=== PATIENT | male | born 1960 | race Two or more races ===

== ENCOUNTER 2023-11-01 10:42 | Inpatient (IN) | payer OTHER ==
[2023-11-01 11:56] LABS: Basophils # (A) 0.1 k/uL (0-0.2); Basophils % (A) 1 %; Eosinophils # (A) 0.1 k/uL (0-0.7); Eosinophils % (A) 1 %; HCT 54.7 % (39.0-53.0); HGB 18.8 gm/dL (13.0-17.5); Lymphocytes # (A) 1.9 k/uL (1.0-4.8); Lymphocytes % (A) 15 %; MCH 31.7 pg (25.0-35.0); MCHC 34.3 g/dL (31.0-37.0); MCV 92.4 fL (80.0-100.0); Mean Platelet Volume 8.2; Monocytes # (A) 0.9 k/uL (0-1.0); Monocytes % (A) 7 %; Neutrophils # (A) 10.1 k/uL (1.3-7.7); Neutrophils % (A) 76 %; Platelet Count 136 k/uL (150-450); RBC 5.92 m/uL (4.30-5.90); RDW 12.7 % (11.5-15.5); WBC 13.3 k/uL (3.8-10.6)
--- NOTE | 2023-11-01 12:07 | ED ---
Abdominal Pain HPI - General Chief Complaint: Abdominal Pain Stated Complaint: ABD pain, SOB Time Seen by Provider: 11/01/23 11:30 Source: patient, RN notes reviewed Mode of arrival: ambulatory Limitations: no limitations - History of Present Illness Initial Comments: 62-year-old male presenting with right upper quadrant pain x 2 days. States he woke up in the middle of the night 2 nights ago and vomited 2 times. He has had dull, constant right upper quadrant pain since then. He has not vomited since 2 nights ago. States he ate Kiswahili several hours before initial symptoms began. He also states he has felt short of breath but denies chest pain or palpitations. States he has a history of a " collapsed lung" several years ago. Denies diarrhea, fever, URI symptoms, urinary symptoms. Denies previous abdominal surgeries. He is tolerating orals but states his appetite is minimal. - Related Data Home Medications Medication Instructions Recorded Confirmed No Known Home Medications 11/01/23 11/01/23 Allergies Allergy/AdvReac Type Severity Reaction Status Date / Time No Known Allergies Allergy Verified 11/01/23 14:37 Review of Systems ROS Statement: Those systems with pertinent positive or pertinent negative responses have been documented in the HPI. ROS Other: All systems not noted in ROS Statement are negative. Past Medical History Past Medical History: Hypertension, Myocardial Infarction ([place]) History of Any Multi-Drug Resistant Organisms: None Reported Past Surgical History: Heart Catheterization Additional Past Surgical History / Comment(s): "NEVER HAD ANY SX" Past Anesthesia/Blood Transfusion Reactions: Motion Sickness Past Psychological History: No Psychological Hx Reported Smoking Status: Current every day smoker Past Alcohol Use History: None Reported, Rare Past Drug Use History: None Reported - Past Family History Father Additional Family Medical History / Comment(s): HEART PROBLEMS Mother Family Medical History: Asthma, Cancer, Diabetes Mellitus, Hypertension, Myocardial Infarction ([place]) Additional Family Medical History / Comment(s): SKIN CANCER. General Exam Limitations: no limitations General appearance: alert, in no apparent distress ENT exam: Present: normal exam, mucous membranes moist Respiratory exam: Present: normal lung sounds bilaterally. Absent: respiratory distress, wheezes, rales, rhonchi, stridor Cardiovascular Exam: Present: regular rate, normal rhythm, normal heart sounds. Absent: systolic murmur, diastolic murmur, rubs, gallop, clicks GI/Abdominal exam: Present: soft, tenderness (Mild tenderness in right upper quadrant.), normal bowel sounds. Absent: distended, guarding, rebound, rigid Course Vital Signs 11/01/23 11/01/23 10:48 13:59 Temperature 98.6 F Pulse Rate 105 H 82 Respiratory 20 18 Rate Blood Pressure 179/101 220/107 O2 Sat by Pulse 98 98 Oximetry Medical Decision Making - Medical Decision Making Was pt. sent in by a medical professional or institution (, PA, MID LEVEL PRACTITIONER, urgent care, hospital, or intermediate...) When possible be specific @ -Urgent care Did you speak to anyone other than the patient for history (EMS, parent, family, police, friend...)? What history was obtained from this source @ -No Did you review nursing and triage notes (agree or disagree)? Why? @ -I reviewed and agree with nursing and triage notes Were old charts reviewed (outside hosp., previous admission, EMS record, old EKG, old radiological studies, urgent care reports/EKG's, intermediate records)? Report findings @ -No old charts were reviewed Differential Diagnosis (chest pain, altered mental status, abdominal pain women, abdominal pain men, vaginal bleeding, weakness, fever, dyspnea, syncope, h eadache, dizziness, GI bleed, back pain, seizure, CVA, palpatations, mental health, musculoskeletal)? @ -Differential Abdominal Pain Men: Appendicitis, cholecystitis, diverticulosis, ischemic bowel, pancreatitis, hepatitis, UTI, gastroenteritis, AAA, incarcerated hernia, bowel obstruction, constipation, inflammatory bowel, hepatitis, peptic ulcer disease, splenic infarction, perforated viscus, testicular torsion, this is not meant to be an all-inclusive list EKG interpreted by me (3pts min.). @ -Normal sinus rhythm with no ST changes X-rays interpreted by me (1pt min.). @ -Chest x-ray reveals no acute process CT interpreted by me (1pt min.). @ -None done U/S interpreted by me (1pt. min.). @ -Ultrasound of gallbladder reveals acute cholecystitis What testing was considered but not performed or refused? (CT, X-rays, U/S, labs)? Why? @ -None What meds were considered but not given or refused? Why? @ -None Did you discuss the management of the patient with other professionals (professionals i.e. , PA, MID LEVEL PRACTITIONER, lab, RT, psych nurse, social group worker, tire center manager, teacher, weapons officer naval activity, correctional counselor/case manager)? Give summary @ -No Was smoking cessation discussed for >3mins.? @ -No Was critical care preformed (if so, how long)? @ -No Were there social determinants of health that impacted care today? How? (Homelessness, low income, unemployed, alcoholism, drug addiction, transportation, low edu. Level, literacy, decrease access to med. care, prison, rehab)? @ -No Was there de-escalation of care discussed even if they declined (Discuss DNR or withdrawal of care, Hospice)? DNR status @ -No What co-morbidities impacted this encounter? (DM, HTN, Smoking, COPD, CAD, Cancer, CVA, ARF, Chemo, Hep., AIDS, mental health diagnosis, sleep apnea, morbid obesity)? @ -No Was patient admitted / discharged? Hospital course, mention meds given and route, prescriptions, significant lab abnormalities, going to OR and other pertinent info. @ -Patient was admitted. Patient was seen and examined for right upper quadrant pain x 2 days. Patient is afebrile on exam, blood pressure is elevated at 210/107. examination remarkable for right upper quadrant tenderness. EKG and chest x-ray obtained due to shortness of breath, EKG reveals normal sinus rhythm and chest x-ray was negative for acute process. Lab work remarkable for white blood cell count of 13.3. Urine unremarkable. Patient was given fluids and IV morphine for pain. Patient was given hydralazine for elevated blood pressure. Spoke with Dr. Copeland regarding admission, instructed to admit patient to medicine team. Care discussed with medicine team. Cardiology and surgery team consulted. Undiagnosed new problem with uncertain prognosis? @ -No Drug Therapy requiring intensive monitoring for toxicity (Heparin, Nitro, Insulin, Cardizem)? @ -No Were any procedures done? @ -No Diagnosis/symptom? @ -Acute cholecystitis Acute, or Chronic, or Acute on Chronic? @ -Acute Uncomplicated (without systemic symptoms) or Complicated (systemic symptoms)? @ -Uncomplicated Side effects of treatment? @ -No Exacerbation, Progression, or Severe Exacerbation? @ -No Poses a threat to life or bodily function? How? (Chest pain, USA, VT, pneumonia, PE, COPD, DKA, ARF, appy, cholecystitis, CVA, Diverticulitis, Homicidal, Suicidal, threat to staff... and all critical care pts) @ -No - Lab Data Result diagrams: 11/01/23 11:43 11/01/23 11:43 Lab Results 11/01/23 11/01/23 11/01/23 Range/Units 11:43 11:43 11:43 WBC 13.3 H (3.8-10.6) k/uL RBC 5.92 H (4.30-5.90) m/uL Hgb 18.8 H (13.0-17.5) gm/dL Hct 54.7 H (39.0-53.0) % MCV 92.4 (80.0-100.0) fL MCH 31.7 (25.0-35.0) pg MCHC 34.3 (31.0-37.0) g/dL RDW 12.7 (11.5-15.5) % Plt Count 136 L (150-450) k/uL MPV 8.2 Neutrophils % 76 % Lymphocytes % 15 % Monocytes % 7 % Eosinophils % 1 % Basophils % 1 % Neutrophils # 10.1 H (1.3-7.7) k/uL Lymphocytes # 1.9 (1.0-4.8) k/uL Monocytes # 0.9 (0-1.0) k/uL Eosinophils # 0.1 (0-0.7) k/uL Basophils # 0.1 (0-0.2) k/uL Sodium 138 (137-145) mmol/L Potassium 4.3 (3.5-5.1) mmol/L Chloride 106 (98-107) mmol/L Carbon Dioxide 24 (22-30) mmol/L Anion Gap 8 mmol/L BUN 20 (9-20) mg/dL Creatinine 0.81 (0.66-1.25) mg/dL Est GFR (CKD-EPI)AfAm >90 (>60 ml/min/1.73 sqM) Est GFR (CKD-EPI)NonAf >90 (>60 ml/min/1.73 sqM) Glucose 127 H (74-99) mg/dL Plasma Lactic Acid Piero (0.7-2.0) mmol/L Calcium 9.7 (8.4-10.2) mg/dL Total Bilirubin 1.3 (0.2-1.3) mg/dL AST 21 (17-59) U/L ALT 25 (4-49) U/L Alkaline Phosphatase 98 (38-126) U/L Troponin I (0.000-0.034) ng/mL Total Protein 7.8 (6.3-8.2) g/dL Albumin 4.4 (3.5-5.0) g/dL Lipase 34 (23-300) U/L Urine Color Yellow Urine Appearance Clear (Clear) Urine pH 5.5 (5.0-8.0) Ur Specific [place] 1.027 (1.001-1.035) Urine Protein 1+ H (Negative) Urine Glucose (UA) Negative (Negative) Urine Ketones Negative (Negative) Urine Blood Negative (Negative) Urine Nitrite Negative (Negative) Urine Bilirubin Negative (Negative) Urine Urobilinogen <2.0 (<2.0) mg/dL Ur Leukocyte Esterase Negative (Negative) Urine WBC 1 (0-5) /hpf Ur Squamous Epith Cells <1 (0-4) /hpf Urine Mucus Moderate H (None) /hpf 11/01/23 11/01/23 Range/Units 11:43 11:43 WBC (3.8-10.6) k/uL RBC (4.30-5.90) m/uL Hgb (13.0-17.5) gm/dL Hct (39.0-53.0) % MCV (80.0-100.0) fL MCH (25.0-35.0) pg MCHC (31.0-37.0) g/dL RDW (11.5-15.5) % Plt Count (150-450) k/uL MPV Neutrophils % % Lymphocytes % % Monocytes % % Eosinophils % % Basophils % % Neutrophils # (1.3-7.7) k/uL Lymphocytes # (1.0-4.8) k/uL Monocytes # (0-1.0) k/uL Eosinophils # (0-0.7) k/uL Basophils # (0-0.2) k/uL Sodium (137-145) mmol/L Potassium (3.5-5.1) mmol/L Chloride (98-107) mmol/L Carbon Dioxide (22-30) mmol/L Anion Gap mmol/L BUN (9-20) mg/dL Creatinine (0.66-1.25) mg/dL Est GFR (CKD-EPI)AfAm (>60 ml/min/1.73 sqM) Est GFR (CKD-EPI)NonAf (>60 ml/min/1.73 sqM) Glucose (74-99) mg/dL Plasma Lactic Acid Piero 1.1 (0.7-2.0) mmol/L Calcium (8.4-10.2) mg/dL Total Bilirubin (0.2-1.3) mg/dL AST (17-59) U/L ALT (4-49) U/L Alkaline Phosphatase (38-126) U/L Troponin I <0.012 (0.000-0.034) ng/mL Total Protein (6.3-8.2) g/dL Albumin (3.5-5.0) g/dL Lipase (23-300) U/L Urine Color Urine Appearance (Clear) Urine pH (5.0-8.0) Ur Specific [place] (1.001-1.035) Urine Protein (Negative) Urine Glucose (UA) (Negative) Urine Ketones (Negative) Urine Blood (Negative) Urine Nitrite (Negative) Urine Bilirubin (Negative) Urine Urobilinogen (<2.0) mg/dL Ur Leukocyte Esterase (Negative) Urine WBC (0-5) /hpf Ur Squamous Epith Cells (0-4) /hpf Urine Mucus (None) /hpf - EKG Data -: EKG Interpreted by [facility] EKG shows normal: sinus rhythm EKG Comments: Normal sinus rhythm with no ST changes. Vent rate 93, NM interval 160, QRS duration 102, QT/QTc 348/398. Disposition Clinical Impression: Acute cholecystitis Disposition: ADMITTED IP TO THIS HOSP Condition: Stable Referrals: Scott Faria MD [Primary Care Provider] - 1-2 days Time of Disposition: 14:47
--- NOTE | 2023-11-01 12:12 | XR ---
EXAMINATION TYPE: XR chest 2V DATE OF EXAM: 11/01/2023 12:06 PM CLINICAL INDICATION:Male, 62 years old with history of abdominal pain; [facility] COMPARISON: None TECHNIQUE: XR chest 2V Frontal and lateral views of the chest. FINDINGS: Lungs/Pleura: There is no evidence of pleural effusion, focal consolidation, or pneumothorax. Pulmonary vascularity: Unremarkable. Heart/mediastinum: Cardiomediastinal silhouette is unremarkable. Musculoskeletal: No acute osseous pathology. Other findings: None IMPRESSION: No acute cardiopulmonary disease/process.
[2023-11-01 12:16] LABS: ALT 25 U/L (4-49); AST 21 U/L (17-59); African American GFR (CKD) >90 (>60 ml/min/1.73 sqM); Albumin 4.4 g/dL (3.5-5.0); Alkaline Phosphatase 98 U/L (38-126); Anion Gap 8 mmol/L; Blood Urea Nitrogen 20 mg/dL (9-20); Calcium 9.7 mg/dL (8.4-10.2); Carbon Dioxide 24 mmol/L (22-30); Chloride 106 mmol/L (98-107); Glucose 127 mg/dL (74-99); Lipase 34 U/L (23-300); Non-African American GFR(CKD) >90 (>60 ml/min/1.73 sqM); Potassium 4.3 mmol/L (3.5-5.1); Sodium 138 mmol/L (137-145); Total Bilirubin 1.3 mg/dL (0.2-1.3); Total Protein 7.8 g/dL (6.3-8.2)
[2023-11-01 12:24] LABS: Appearance,Urine Clear (Clear); Bilirubin,Urine Negative (Negative); Blood,Urine Negative (Negative); Color,Urine Yellow; Glucose,Urine (UA) Negative (Negative); Ketones,Urine Negative (Negative); Leukocyte Esterase,Urine Negative (Negative); Mucus,Urine Moderate /hpf; Nitrite,Urine Negative (Negative); PH, Urine 5.5 (5.0-8.0); Protein,Urine 1+ (Negative); Specific Gravity,Urine 1.027 (1.001-1.035); Squamous Epithelial Cell,Urine <1 /hpf (0-4); Urobilinogen,Urine <2.0 mg/dL (<2.0); WBC,Urine 1 /hpf (0-5)
[2023-11-01] MEDS: MORPHINE SULFATE 4 MG/ML SYRINGE IVP STA (13:05)
[2023-11-01] MEDS: SODIUM CHLORIDE 0.9% 1,000 ML IV STA (13:06)
--- NOTE | 2023-11-01 13:12 | US ---
EXAMINATION TYPE: US gallbladder DATE OF EXAM: 11/01/2023 COMPARISON: NONE CLINICAL INDICATION: Male, 62 years old with history of RUQ pain; Pt states ABD pain x 2 days TECHNIQUE: Multiple sonographic images of the right upper quadrant are obtained. FINDINGS: EXAM MEASUREMENTS: Liver Length: 18.0 cm Gallbladder Wall: 0.8 cm CBD: 0.7 cm Right Kidney: 10.2 x 5.0 x 4.8 cm ARMORER TECHNICIAN NOTES: Pancreas: Obscured by bowel gas Liver: Left lobe gassed out, right lobe visualized intercostally only- pt unable to take breath in a nd hold it Gallbladder: Difficult to visualize- Distended, Probable gallstones, thickened wall, and pericholecy stic fluid Evidence for sonographic Marquis's sign: Yes CBD: wnl Right Kidney: No evidence of hydro, lower pole gassed out IMPRESSION: Poor visualization due to bowel gas there is evidence for cholelithiasis with pericholecystic fluid a nd possible gallbladder wall thickening. In the presence of a positive sonographic Marquis's sign, fin dings are concerning for acute cholecystitis. Surgical consultation recommended. Consider confirmatio n with HIDA scan.
[2023-11-01] MEDS ORDERED: NALOXONE 0.4 MG/ML 1 ML VIAL IV PRN (14:00)
[2023-11-01] MEDS ORDERED: ONDANSETRON 4 MG/2 ML VIAL IVP PRN (14:00)
--- NOTE | 2023-11-01 14:37 | P.GSHP ---
History of Present Illness H&P Date: 11/01/23 CHIEF COMPLAINT: Abdominal pain HISTORY OF PRESENT ILLNESS: This is a 62-year-old male who presented to the hospital with complaints of right upper quadrant abdominal pain x 2 days. Patient reports the abdominal pain woke him up Wednesday morning. The prior evening he had eaten Croatian for dinner. He did have nausea and vomiting x 2 on Wednesday. Patient reports that he has felt feverish and warm. Patient reports the pain did become very severe rated at 7 out of 10 he was having shortness of breath with the pain. He is currently on room air. He does report that the pain is located right upper quadrant and radiates around to the back. Patient denies any prior abdominal surgeries. His ultrasound did show evidence of gallstones, pericholecystic fluid gallbladder wall thickening and a positive Marquis sign and to consider for acute cholecystitis. Patient's blood pressure is very elevated he is mildly tachycardic and evidence of leukocytosis. Patient has been noncompliant with his cardiac meds which did include Plavix and Imdur. He reports he stopped taking them on his own several years ago. Patient has history of coronary artery disease. Patient is still smoking about a pack a day. Patient diet denies any chest pain or shortness of breath currently. He does complain of back pain. PAST MEDICAL HISTORY: See list. PAST SURGICAL HISTORY: See list. MEDICATIONS: See list. ALLERGIES: See list. SOCIAL HISTORY: No illicit drug use. REVIEW OF SYSTEMS: CONSTITUTIONAL: Denies fever or chills. HEENT: Denies blurred vision, vision changes, or eye pain. Denies hemoptysis ENDOCRINE: Denies heat or cold intolerance. CARDIOVASCULAR: Denies chest pain or pressure. RESPIRATORY: No shortness of breath. GASTROINTESTINAL: Please refer to HPI otherwise unremarkable NEURO: Denies history of seizures. PSYCH: No depression or suicidal ideation HEMATOLOGIC: Denies bleeding disorders. LYMPHATIC: The patient denies any lumps and bumps around the neck. GENITOURINARY: Denies any blood in urine or increased urinary frequency. MUSCULOSKELETAL: Denies myalgias. Denies joint swelling. Denies decreased range of motion beyond patients baseline. SKIN: Denies pruitis. Denies rash. PHYSICAL EXAM: VITAL SIGNS: Reviewed GENERAL: Well-developed in no acute distress. HEENT: No sclera icterus. Extraocular movements grossly intact. Moist buccal mucosa. Head is atraumatic, normocephalic. Hears conversational speech. No nasal drainage. NECK: Supple without lymphadenopathy. CHEST: Non-labored respirations and equal bilateral excursions. CARDIOVASCULAR: Palpable 2+ radial pulses. ABDOMEN: Soft. Nondistended. Right upper quadrant tenderness MUSCULOSKELETAL: No clubbing or cyanosis. NEUROLOGIC: No focal or lateralizing signs. Cranial nerves II through XII grossly intact. PSYCH: Appropriate affect. Alert and oriented to person, place and time. SKIN: Well perfused. Good skin turgor. LABORATORY DATA: WBC 13.3 Hgb 18.8 platelets 136 Sodium 138 potassium 4.3 creatinine 0.81 Lactic acid 1.1 Troponin negative LFTs normal lipase 34 IMAGING: Gallbladder ultrasound poor visualization due to bowel gas there is evidence for cholelithiasis with pericholecystic fluid and possible gallbladder wall thickening. Positive Marquis sign. Findings are concerning for acute cholecystitis. ASSESSMENT: 1. Acute cholecystitis 2. Severe hypertension 3. Medical noncompliance 4. History of coronary artery disease 5. Nicotine dependence PLAN: -Further recommendations forthcoming per surgeon regarding surgical intervention. Prior to surgical intervention will need cardiac clearance. -Continue antibiotics -Continue pain management -Continue IV fluids -Continue antiemetics -Continue BP management -EKG ordered -Consult cardiology for cardiac risk assessment. BP management -2D echo ordered Physician College Service Officer note has been reviewed by physician. Signing provider agrees with the documented findings, assessment, and plan of care. Past Medical History Past Medical History: Hypertension, Myocardial Infarction ([place]) History of Any Multi-Drug Resistant Organisms: None Reported Past Surgical History: Heart Catheterization Additional Past Surgical History / Comment(s): "NEVER HAD ANY SX" Past Anesthesia/Blood Transfusion Reactions: Motion Sickness Past Psychological History: No Psychological Hx Reported Smoking Status: Current every day smoker Past Alcohol Use History: None Reported, Rare Past Drug Use History: None Reported - Past Family History Father Additional Family Medical History / Comment(s): HEART PROBLEMS Mother Family Medical History: Asthma, Cancer, Diabetes Mellitus, Hypertension, Myocardial Infarction ([place]) Additional Family Medical History / Comment(s): SKIN CANCER. Medications and Allergies Home Medications Medication Instructions Recorded Confirmed Type lisinopriL [Zestril] 10 mg PO DAILY 12/09/15 12/09/15 History Aspirin EC [Ecotrin] 325 mg PO DAILY #30 tablet. 12/12/15 Rx Atorvastatin [Lipitor] 80 mg PO DAILY #30 tab 12/12/15 Rx Clopidogrel [Plavix] 75 mg PO DAILY #30 tab 12/12/15 Rx Isosorbide Mononitrate ER [Imdur] 30 mg PO DAILY #30 tab.er.24h 12/12/15 Rx Metoprolol Tartrate [Lopressor] 25 mg PO BID #60 tab 12/12/15 Rx Nicotine 21Mg/24Hr Patch [Habitrol] 1 patch TRANSDERM DAILY #30 patch 12/12/15 Rx Nitroglycerin Sl Tabs [Nitrostat] 0.4 mg SUBLINGUAL Q5M PRN #25 tab 12/12/15 Rx Allergies Allergy/AdvReac Type Severity Reaction Status Date / Time No Known Allergies Allergy Verified 11/01/23 10:52 Surgical - Exam Vital Signs Temp Pulse Resp BP Pulse Ox 98.6 F 105 H 20 179/101 98 11/01/23 10:48 11/01/23 10:48 11/01/23 10:48 11/01/23 10:48 11/01/23 10:48 Results - Labs 11/01/23 11:43 11/01/23 11:43 Abnormal Lab Results - Last 24 Hours (Table) 11/01/23 11/01/23 11/01/23 Range/Units 11:43 11:43 11:43 WBC 13.3 H (3.8-10.6) k/uL RBC 5.92 H (4.30-5.90) m/uL Hgb 18.8 H (13.0-17.5) gm/dL Hct 54.7 H (39.0-53.0) % Plt Count 136 L (150-450) k/uL Neutrophils # 10.1 H (1.3-7.7) k/uL Glucose 127 H (74-99) mg/dL Urine Protein 1+ H (Negative) Urine Mucus Moderate H (None) /hpf Diabetes panel 11/01/23 Range/Units 11:43 Sodium 138 (137-145) mmol/L Potassium 4.3 (3.5-5.1) mmol/L Chloride 106 (98-107) mmol/L Carbon Dioxide 24 (22-30) mmol/L BUN 20 (9-20) mg/dL Creatinine 0.81 (0.66-1.25) mg/dL Glucose 127 H (74-99) mg/dL Calcium 9.7 (8.4-10.2) mg/dL AST 21 (17-59) U/L ALT 25 (4-49) U/L Alkaline Phosphatase 98 (38-126) U/L Total Protein 7.8 (6.3-8.2) g/dL Albumin 4.4 (3.5-5.0) g/dL Calcium panel 11/01/23 Range/Units 11:43 Calcium 9.7 (8.4-10.2) mg/dL Albumin 4.4 (3.5-5.0) g/dL Pituitary panel 11/01/23 Range/Units 11:43 Sodium 138 (137-145) mmol/L Potassium 4.3 (3.5-5.1) mmol/L Chloride 106 (98-107) mmol/L Carbon Dioxide 24 (22-30) mmol/L BUN 20 (9-20) mg/dL Creatinine 0.81 (0.66-1.25) mg/dL Glucose 127 H (74-99) mg/dL Calcium 9.7 (8.4-10.2) mg/dL Adrenal panel 11/01/23 Range/Units 11:43 Sodium 138 (137-145) mmol/L Potassium 4.3 (3.5-5.1) mmol/L Chloride 106 (98-107) mmol/L Carbon Dioxide 24 (22-30) mmol/L BUN 20 (9-20) mg/dL Creatinine 0.81 (0.66-1.25) mg/dL Glucose 127 H (74-99) mg/dL Calcium 9.7 (8.4-10.2) mg/dL Total Bilirubin 1.3 (0.2-1.3) mg/dL AST 21 (17-59) U/L ALT 25 (4-49) U/L Alkaline Phosphatase 98 (38-126) U/L Total Protein 7.8 (6.3-8.2) g/dL Albumin 4.4 (3.5-5.0) g/dL
--- NOTE | 2023-11-01 15:17 | P.HPIM ---
History of Present Illness H&P Date: 11/01/23 History of Presenting Illness: Patient is a very pleasant 62-year-old male with a past medical history of CAD with previous RI, hypertension, hyperlipidemia, spontaneous pneumothorax, and nicotine dependence smoking 1 pack of cigarettes daily for over 40 years. Patient reports previously on medications for his blood pressure, possibly amlodipine but stopped taking years ago. He presented to the emergency department with a chief complaint of right upper quadrant pain. Patient reports pain began Wednesday night after eating Ethiopian food for dinner. Patient reports when pain began it was accompanied by nausea and vomiting. He reports initial pain lasted for hours but seem to subside and somewhat improved on Wednesday, but states this pain soon returned with a vengeance so he came to the emergency department for evaluation. He reports pain remains to right upper quadrant and seems to radiate straight through into his back. He denies anything making it better or worse. Patient reports in addition to right upper quadrant pain, nausea, and vomiting he has also experiencing subjective fevers at home. He denies experiencing any dizziness/lightheadedness, diaphoresis, dysphagia, chest pain, palpitations, shortness of breath, cough or congestion, hematemesis, or experiencing any difficulties with or changes in his urinary or bowel function. Patient denies having any melena or hematochezia and denies any diarrhea or constipation. He underwent evaluation in the emergency department. Vital signs upon arrival show blood pressure 179/101, heart rate 105, respiratory rate 20, temp 98.6 F, and SpO2 of 98% on room air. Blood pressure increasing to 220/107 in the emergency department and patient was given a dose of IV hydralazine resulting in improvement of pressure decreasing it down to 172/82. EKG completed showing sinus mechanism at 93 bpm with T wave inversion in inferior leads III and aVF. Chest x-ray completed negative for acute cardiopulmonary process. Gallbladder ultrasound completed with reports of positive Marquis's sig n and evidence of cholelithiasis with pericholecystic fluid and possible gallbladder wall thickening concerning for acute cholecystitis. Labs completed and reviewed. CBC showing leukocytosis with WBC count of 13.3, polycythemia with hemoglobin of 18.8 and thrombocytopenia with platelet count of 136. BMP unremarkable. Lactic acid normal findings at 1.1. Liver profile showing normal findings. Troponin negative at less than 0.012. Lipase normal findings at 34. Urinalysis negative for blood or infection. Per ED provider, general surgery was notified and requested patient be admitted under hospitalist team with general surgery and cardiology on consult. Patient accepted for admission under our services at this time. Review of systems: Pertinent positives and negatives as discussed in HPI, a complete review of systems was performed and all other systems are negative. Physical exam: Vital signs reviewed and stable. General: Nontoxic, no distress and appears stated age. Derm: Skin warm and dry, normal coloration for ethnicity. Head: Atraumatic, normocephalic and symmetric. Eyes: EOMs intact, no lid lag, and anicteric sclera Mouth: no lip lesions, mucus membranes moist Cardiovascular: regular rate and rhythm with normal S1S2, no murmur, positive posterior tibial pulses bilaterally, and cap refill < 2 seconds. Lungs: Respirations even, regular, and unlabored on room air. Lungs CTA bilaterally, no rhonchi, no rales, no wheezing, and no accessory muscle usage. Abdominal: Soft with tenderness to right upper quadrant upon palpation Ext: ROM intact. No gross muscle atrophy, no edema, no contractures Neuro: Speech clear, face symmetrical and CN II-XII grossly intact with no noted focal neuro deficits Psych: Alert and oriented to person, place, time, and situation. Appropriate and pleasant affect. Assessment and Plan of Care: Intractable abdominal pain Acute cholecystitis Leukocytosis Polycythemia Thrombocytopenia -Continue gentle IV fluid hydration with 0.9% normal saline at 75 cc/h. -Symptomatic care and pain management with Zofran 4 mg IVP every 8 hours as needed for nausea or vomiting and Dilaudid 1 mg every 3 hours as needed for pain. -General surgery consulted, appreciate recommendations. -Continue with IV antibiotics with Zosyn 3.375 g every 8 hours. -Continued close monitoring with repeat CBC and CMP. Hypertensive urgency History of CAD with previous RI -Hypertensive urgency likely multifactorial secondary to untreated underlying hypertension and pain secondary to acute cholecystitis. -Will restart patient on amlodipine 5 mg daily. -Order placed for hydralazine 10 mg IVP every 4 hours as needed for systolic pressure greater than 180 and/or diastolic greater then 120, with nursing communication written to ensure patient's pain is adequately treated. -Echocardiogram to be completed. -Cardiology consulted, appreciate recommendations. Nicotine dependence -Recommend smoking cessation. Order placed for nicotine patch 21 mg daily. Surgical clearance -METS score is > 4 as patient reports independently performing all ADLs and able to walk 1-2 blocks and/or up 1 flight of stairs without chest pain or shortness of breath. -NSQIP surgical risk calculator showing patient at an above average risk of 2.1% with average of 1.8% for serious complications, above average risk of cardiac complications at 0.1% with average being 0.0% and an above average risk of at 0.1% with average risk being 0.0%. -Patient is at an above average risk to undergo laparoscopic cholecystectomy, however METS score is greater than 4 and therefore further workup is unlikely to change preoperative management and from medical perspective patient may proceed to surgery without further need of testing pending cardiology clearance. Data and imaging reviewed: As stated above in HPI The patient is admitted with an anticipated greater than 2 midnight stay for evaluation of acute cholecystitis and hypertensive urgency CODE STATUS: Full code DVT prophylaxis: Lovenox Anticipated discharge date: Clinical course to determine Anticipated discharge place: Home Patient was seen independently by Nurse Practitioner. This document was prepared using [employer] dictation software. Please allow for errors in hat forming machine feeder while rare they do occur. I reviewed the documentation as provided by the ÁLVARO above, who is the original author of this note. I agree with the documented assessment and plan, with the following changes: none Past Medical History Past Medical History: Hypertension, Myocardial Infarction (RI) History of Any Multi-Drug Resistant Organisms: None Reported Past Surgical History: Heart Catheterization Additional Past Surgical History / Comment(s): "NEVER HAD ANY SX" Past Anesthesia/Blood Transfusion Reactions: Motion Sickness Past Psychological History: No Psychological Hx Reported Smoking Status: Current every day smoker Past Alcohol Use History: None Reported, Rare Past Drug Use History: None Reported - Past Family History Father Additional Family Medical History / Comment(s): HEART PROBLEMS Mother Family Medical History: Asthma, Cancer, Diabetes Mellitus, Hypertension, Myocardial Infarction (RI) Additional Family Medical History / Comment(s): SKIN CANCER. Medications and Allergies Home Medications Medication Instructions Recorded Confirmed Type Acetaminophen Tab [Tylenol] 1,000 mg PO Q6HR PRN #30 tablet 11/04/23 Rx Amoxic-Pot Clav 875-125Mg 1 tab PO Q12HR 10 Days #20 tab 11/04/23 Rx [Augmentin 875-125] Atorvastatin [Lipitor] 40 mg PO HS #30 tab 11/04/23 Rx Ibuprofen [Motrin] 600 mg PO Q8HR PRN #30 tab 11/04/23 Rx Isosorbide Mononitrate ER [Imdur] 30 mg PO DAILY #30 tab 11/04/23 Rx Metoprolol Succinate (ER) [Toprol 50 mg PO DAILY #30 tab 11/04/23 Rx XL] amLODIPine [Norvasc] 5 mg PO DAILY #30 tab 11/04/23 Rx Allergies Allergy/AdvReac Type Severity Reaction Status Date / Time No Known Allergies Allergy Verified 11/01/23 14:37 Physical Exam Vitals: Vital Signs Temp Pulse Resp BP Pulse Ox 11/01/23 13:59 82 18 220/107 98 11/01/23 10:48 98.6 F 105 H 20 179/101 98 Intake and Output 10/31/23 11/01/23 11/01/23 22:59 06:59 14:59 Other: Weight 95.254 kg Results CBC & Chem 7: 11/04/23 11:39 11/04/23 11:39 Labs: Abnormal Lab Results - Last 24 Hours (Table) 11/01/23 11/01/23 11/01/23 Range/Units 11:43 11:43 11:43 WBC 13.3 H (3.8-10.6) k/uL RBC 5.92 H (4.30-5.90) m/uL Hgb 18.8 H (13.0-17.5) gm/dL Hct 54.7 H (39.0-53.0) % Plt Count 136 L (150-450) k/uL Neutrophils # 10.1 H (1.3-7.7) k/uL Glucose 127 H (74-99) mg/dL Urine Protein 1+ H (Negative) Urine Mucus Moderate H (None) /hpf
[2023-11-01] MEDS: hydrALAZINE HCL 20 MG/ML 1 ML VIAL IVP STA (15:29)
[2023-11-01] MEDS: PIPERACILLIN-TAZOBACTAM 3.375 GM in SODIUM CHLORIDE 0.9% 100 ML IVPB SCH (15:37)
[2023-11-01] MEDS: SODIUM CHLORIDE 0.9% 1,000 ML IV SCH (15:37)
[2023-11-01] MEDS: NICOTINE 21MG/24HR PATCH TRANSDERM SCH (17:10)
[2023-11-01] MEDS ORDERED: hydrALAZINE HCL 20 MG/ML 1 ML VIAL IVP PRN (17:28)
[2023-11-01] MEDS: amLODIPine 5 MG TAB PO STA (17:37)
--- NOTE | 2023-11-01 17:52 | CA ---
Transthoracic Echo Report Name: Vinayak Hsu Age: 62 Gender: M : 1960 Exam Date: 11/01/2023 15:09 Exam Location: [facility] Ht (in): 72 Wt (lb): 210 Ordering Physician: Jes Vargas Attending/Referring Phys: Hand Pattern Marker Blanca Williamson RDCS Procedure CPT: Indications: check EF, pre-op Cardiac Hx: Technical Quality: Technically difficult study Contrast 1: Definity Total Dose (mL): 2 Contrast 2: Total Dose (mL): MEASUREMENTS (Male / Female) Normal Values 2D ECHO LV Diastolic Diameter PLAX 4.0 cm 4.2 - 5.9 / 3.9 - 5.3 cm LV Systolic Diameter PLAX 2.4 cm IVS Diastolic Thickness 1.4 cm 0.6 - 1.0 / 0.6 - 0.9 cm LVPW Diastolic Thickness 1.3 cm 0.6 - 1.0 / 0.6 - 0.9 cm LV Relative Wall Thickness 0.7 RV Internal Dim ED PLAX 3.4 cm LA Systolic Diameter LX 4.1 cm 3.0 - 4.0 / 2.7 - 3.8 cm LV Diastolic Volume MOD BP 92.2 cm??? 67 - 155 / 56 - 104 cm??? LV Systolic Volume MOD BP 39.1 cm??? - 58 / 19 - 49 cm??? LV Ejection Fraction MOD BP 57.5 % >= 55 % LV Cardiac Index MOD BP 1986.2 cm???/min???m??? LV Diastolic Volume MOD 4C 113.8 cm??? LV Systolic Volume MOD 4C 53.6 cm??? LV Ejection Fraction MOD 4C 52.9 % LV Cardiac Index MOD 4C 2252.8 cm???/min???m??? LV Diastolic Length 4C 9.0 cm LV Systolic Length 4C 7.9 cm LV Diastolic Volume MOD 2C 76.6 cm??? LV Systolic Volume MOD 2C 28.9 cm??? LV Ejection Fraction MOD 2C 62.2 % LV Cardiac Index MOD 2C 1781.5 cm???/min???m??? LV Diastolic Length 2C 9.1 cm LV Systolic Length 2C 7.8 cm LA Volume 48.3 cm??? 18 - 58 / 22 - 52 cm??? LA Volume Index 21.8 cm???/m??? 16 - 28 cm???/m??? M-MODE Aortic Root Diameter MM 3.1 cm MV E Point Septal Separation 0.8 cm DOPPLER AV Peak Velocity 124.1 cm/s AV Peak Gradient 6.2 mmHg MV Area PHT 2.8 cm??? Mitral E Point Velocity 62.2 cm/s Mitral A Point Velocity 116.9 cm/s Mitral E to A Ratio 0.5 MV Deceleration Time 275.0 ms TR Peak Velocity 250.7 cm/s TR Peak Gradient 25.1 mmHg Right Ventricular Systolic Press 29.4 mmHg FINDINGS Left Ventricle Left ventricular ejection fraction is estimated at 55-60 %. Left ventricular cavity size normal. Mildly increased septal wall thickness. No obvious regional wall motion abnormalities. Right Ventricle Mild right ventricular dilatation. Right ventricular systolic pressure within normal limits. Right Atrium Normal right atrial size. Left Atrium Mildly increased left atrial diameter. Mitral Valve Structurally normal mitral valve. Trace mitral regurgitation. Aortic Valve Trileaflet aortic valve. Thickened aortic valve without stenosis. No aortic stenosis. No aortic regurgitation. Tricuspid Valve Structurally normal tricuspid valve. Mild tricuspid regurgitation. Pulmonic Valve Structurally normal pulmonic valve. Trace pulmonic regurgitation. Pericardium No pericardial effusion. Aorta Normal size aortic root and proximal ascending aorta. CONCLUSIONS Normal ejection fraction Previewed by: Dr. Jose Luis Langley MD (Electronically Signed) Final Date: 01 November 2023 17:51
[2023-11-01] MEDS: HYDROmorphone 1 MG/ML 1 ML SYRINGE IVP PRN (21:56)
[2023-11-02] MEDS: ENOXAPARIN 40 MG/0.4 ML SYRINGE SQ SCH (08:34)
[2023-11-02] MEDS: amLODIPine 5 MG TAB PO SCH (08:35)
--- NOTE | 2023-11-02 11:45 | P.PN ---
Subjective Progress Note Date: 11/02/23 CHIEF COMPLAINT: Abdominal pain HISTORY OF PRESENT ILLNESS: Surgical service following in regards to patient's acute cholecystitis. Patient lying in bed comfortably. His hypertension is improving after medication changes per medicine service. Afebrile. Repeat labs for today pending. Tolerating clear liquid diet. Echo with normal EF PHYSICAL EXAM: VITAL SIGNS: Reviewed GENERAL: Well-developed in no acute distress. HEENT: No sclera icterus. Extraocular movements grossly intact. Moist buccal mucosa. Head is atraumatic, normocephalic. Hears conversational speech. No nasal drainage. NECK: Supple without lymphadenopathy. CHEST: Non-labored respirations and equal bilateral excursions. CARDIOVASCULAR: Palpable 2+ radial pulses. ABDOMEN: Soft. Nondistended. Right upper quadrant tenderness with palpation MUSCULOSKELETAL: No clubbing or cyanosis. NEUROLOGIC: No focal or lateralizing signs. Cranial nerves II through XII grossly intact. PSYCH: Appropriate affect. Alert and oriented to person, place and time. SKIN: Well perfused. Good skin turgor. ASSESSMENT: 1. Acute cholecystitis. Ultrasound reports cholelithiasis with pericholecystic fluid and possible gallbladder wall thickening. Positive Marquis sign 2. Severe hypertension 3. Medical noncompliance 4. History of coronary artery disease 5. Nicotine dependence PLAN: -Awaiting cardiac risk assessment before proceeding with surgical intervention -Continue antibiotics -Continue pain management -Continue antiemetics -Continue BP management -Advance diet to low fat Physician Pierogi Maker note has been reviewed by physician. Signing provider agrees with the documented findings, assessment, and plan of care. Objective - Vital Signs Vital signs: Vital Signs Temp 98.0 F 11/02/23 08:00 Pulse 77 11/02/23 08:00 Resp 16 11/02/23 08:00 BP 165/73 11/02/23 08:00 Pulse Ox 94 L 11/02/23 08:00 FiO2 Intake & Output 11/01/23 11/02/23 11/02/23 18:59 06:59 18:59 Weight 95.254 kg - Labs CBC & Chem 7: 11/01/23 11:43 11/01/23 11:43 Labs: Abnormal Lab Results - Last 24 Hours (Table) 11/01/23 11/01/23 11/01/23 Range/Units 11:43 11:43 11:43 WBC 13.3 H (3.8-10.6) k/uL RBC 5.92 H (4.30-5.90) m/uL Hgb 18.8 H (13.0-17.5) gm/dL Hct 54.7 H (39.0-53.0) % Plt Count 136 L (150-450) k/uL Neutrophils # 10.1 H (1.3-7.7) k/uL Glucose 127 H (74-99) mg/dL Urine Protein 1+ H (Negative) Urine Mucus Moderate H (None) /hpf
[2023-11-02] MEDS: ISOSORBIDE MONONITRATE ER 30 MG TAB.ER.24H PO SCH (12:17)
[2023-11-02] MEDS: METOPROLOL SUCCINATE (ER) 50 MG TAB.ER.24H PO SCH (12:17)
[2023-11-02 12:34] LABS: ALT 23 U/L (10-49); AST 21 U/L (14-35); Albumin/Globulin Ratio 1.43 Ratio (1.60-3.17); Alkaline Phosphatase 89 U/L (41-126); Blood Urea Nitrogen 19.8 mg/dL (9.0-27.0); Calcium 9.2 mg/dL (8.7-10.3); Carbon Dioxide 24.7 mmol/L (21.6-31.8); Chloride 101 mmol/L (96-109); Globulin 2.8 g/dL (1.6-3.3); Glucose 111 mg/dL (70-110); Magnesium 2.3 mg/dL (1.5-2.4); Potassium 4.4 mmol/L (3.5-5.5); Sodium 139 mmol/L (135-145); Total Bilirubin 1.2 mg/dL (0.3-1.2); Total Protein 6.8 g/dL (6.2-8.2)
[2023-11-02 12:38] LABS: Basophils # (A) 0.06 X 10*3/uL (0.00-0.10); Basophils % (A) 0.4 %; Eosinophils # (A) 0.14 X 10*3/uL (0.04-0.35); HCT 50.6 % (39.6-50.0); HGB 17.1 g/dL (13.0-17.0); Lymphocytes # (A) 2.93 X 10*3/uL (0.90-5.00); Lymphocytes % (A) 21.3 %; MCH 31.3 pg (27.0-32.0); MCHC 33.8 g/dL (32.0-37.0); MCV 92.5 FL (80.0-97.0); Mean Platelet Volume 11.1 FL (9.5-12.2); Monocytes % (A) 10.9 %; NRBC Per 100 WBC 0 X 10*3/uL (0.00-0.01); Neutrophils # (A) 9.05 X 10*3/uL (1.80-7.70); Platelet Count 144 X 10*3/uL (140-440); RBC 5.47 X 10*6/uL (4.40-5.60); WBC 13.74 X 10*3/uL (4.50-10.00)
--- NOTE | 2023-11-02 14:23 | P.CRDCN ---
History of Present Illness Consult date: 11/02/23 Reason for Consult (text): Surgical clearance History of present illness: History of present illness: This is a 62-year-old male previously seen by Dr. Ho in 2016 with past medical history of coronary artery disease in the OM branch which could not be opened, 100% on the ostial RCA, hypertension, dyslipidemia, tobacco use, history of HI. We have been asked to evaluate the patient for presurgical clearance. Patient presented to the hospital due to abdominal pain that woke him on Wednesday with nausea and vomiting, feverish. Patient was found to have cholecystitis, seen by general surgery and plan for surgical intervention. R egarding blood pressure, patient has been started on amlodipine and status post 1 dose of IV hydralazine. Patient states that he stopped taking all of his cardiac medications a few years ago. Patient is an active smoker. He is agreeable to follow-up with cardiology following this hospitalization. EKG sinus rhythm 93 bpm Chest x-ray: No acute process Echocardiogram reveals EF of 55-60. Gallbladder ultrasound revealed cholelithiasis with pericholecystic fluid and possible gallbladder wall thickening. Positive Marquis sign WBC 13.3, hemoglobin 18, platelet count 136. CMP within normal limits except for glucose of 127. Troponin negative x 1. Home cardiac medications: None Cardiac catheterization performed [address] Ho in the setting of an acute non-ST elevated myocardial infarction revealed LAD 20 to 30% diffuse plaque. One of the OM branch is totally occluded. Right coronary artery is small and totally occluded in the proximal portion. Review Of Systems: At the time of my exam: CONSTITUTIONAL: Denies fever or chills. HEENT: Denies blurred vision, vision changes, or eye pain. Denies hemoptysis CARDIOVASCULAR: Denies chest pain. Denies orthopnea. Denies PND. Denies palpitations RESPIRATORY: Denies shortness of breath. GASTROINTESTINAL: Denies abdominal pain. Denies nausea or vomiting. HEMATOLOGIC: Denies bleeding disorders. GENITOURINARY: Denies any blood in urine. SKIN: Denies pruitis. Denies rash. Physical examination: Gen: This is a 62-year-old male in no acute distress VS: reviewed blood pressure 165/73, heart rate in the 70s and 80s, pulse ox 94% on room air HEENT: Head is atraumatic, normocephalic. Pupils equal, round. Sclerae is anicteric. NECK: Supple. No JVD. LUNGS: Clear to auscultation. No wheezes or rhonchi. No intercostal retractions . HEART: Regular rate and rhythm. No murmur. ABDOMEN: Soft No tenderness. EXTREMITIES: No pedal edema. No calf tenderness. NEUROLOGICAL: Patient is awake, alert and oriented x3. Assessment: Cholecystitis Coronary artery disease Hypertension Hyperlipidemia Tobacco use Noncompliance Plan: Patient is cleared for cholecystectomy. Start patient on a atorvastatin 40 mg at bedtime, Imdur 30 mg daily, Toprol-XL 50 mg daily Continue amlodipine Start aspirin 81 mg following surgery Smoking cessation, continue nicotine patch Obtain 2-D echocardiogram and Doppler study to assess cardiac structure and function Further recommendations to follow based upon clinical course At the time of discharge, patient to follow-up with Dr. Don Langley in the office in 2 weeks. Thank you kindly for this consultation. Nurse practitioner note has been reviewed, I agree with documented findings and plan of care. Patient was seen and examined. Past Medical History Past Medical History: Hypertension, Myocardial Infarction (HI) History of Any Multi-Drug Resistant Organisms: None Reported Past Surgical History: Heart Catheterization Additional Past Surgical History / Comment(s): "NEVER HAD ANY SX" Past Anesthesia/Blood Transfusion Reactions: Motion Sickness Past Psychological History: No Psychological Hx Reported Smoking Status: Current every day smoker Past Alcohol Use History: None Reported, Rare Past Drug Use History: None Reported - Past Family History Father Additional Family Medical History / Comment(s): HEART PROBLEMS Mother Family Medical History: Asthma, Cancer, Diabetes Mellitus, Hypertension, Myocardial Infarction (HI) Additional Family Medical History / Comment(s): SKIN CANCER. Medications and Allergies Home Medications Medication Instructions Recorded Confirmed Type No Known Home Medications 11/01/23 11/01/23 History Allergies Allergy/AdvReac Type Severity Reaction Status Date / Time No Known Allergies Allergy Verified 11/01/23 14:37 Physical Exam Vitals: Vital Signs Temp Pulse Pulse Pulse Resp BP BP 11/02/23 08:00 98.0 F 77 16 165/73 11/02/23 06:00 80 18 109/66 11/02/23 03:57 87 18 11/02/23 01:57 86 18 11/01/23 23:57 82 18 11/01/23 21:57 88 18 11/01/23 21:00 100 18 136/68 11/01/23 20:00 89 18 11/01/23 18:07 99.0 F 85 18 11/01/23 17:08 18 11/01/23 16:00 86 18 187/99 11/01/23 15:22 86 18 172/82 11/01/23 13:59 82 18 220/107 11/01/23 10:48 98.6 F 105 H 20 179/101 BP Pulse Ox 11/02/23 08:00 94 L 11/02/23 06:00 94 L 11/02/23 03:57 152/97 97 11/02/23 01:57 155/74 95 11/01/23 23:57 149/90 11/01/23 21:57 157/90 95 11/01/23 21:00 98 11/01/23 20:00 175/96 96 11/01/23 18:07 188/96 95 11/01/23 17:08 178/84 96 11/01/23 16:00 98 11/01/23 15:22 98 11/01/23 13:59 98 11/01/23 10:48 98 Results 11/02/23 06:24 11/02/23 06:24 Cardiac Enzymes 11/01/23 11/01/23 Range/Units 11:43 11:43 AST 21 (17-59) U/L Troponin I <0.012 (0.000-0.034) ng/mL CBC 11/01/23 Range/Units 11:43 WBC 13.3 H (3.8-10.6) k/uL RBC 5.92 H (4.30-5.90) m/uL Hgb 18.8 H (13.0-17.5) gm/dL Hct 54.7 H (39.0-53.0) % Plt Count 136 L (150-450) k/uL Comprehensive Metabolic Panel 11/01/23 Range/Units 11:43 Sodium 138 (137-145) mmol/L Potassium 4.3 (3.5-5.1) mmol/L Chloride 106 (98-107) mmol/L Carbon Dioxide 24 (22-30) mmol/L BUN 20 (9-20) mg/dL Creatinine 0.81 (0.66-1.25) mg/dL Glucose 127 H (74-99) mg/dL Calcium 9.7 (8.4-10.2) mg/dL AST 21 (17-59) U/L ALT 25 (4-49) U/L Alkaline Phosphatase 98 (38-126) U/L Total Protein 7.8 (6.3-8.2) g/dL Albumin 4.4 (3.5-5.0) g/dL Current Medications Generic Name Dose Route Start Last Admin Trade Name Freq PRN Reason Stop Dose Admin Amlodipine Besylate 5 mg 11/02/23 09:00 11/02/23 08:35 Amlodipine 5 Mg Tab PO 5 mg DAILY CARL Administration Enoxaparin Sodium 40 mg 11/02/23 09:00 11/02/23 08:34 Enoxaparin 40 Mg/0.4 Ml Syringe SQ 40 mg DAILY CARL Administration Hydralazine HCl 10 mg 11/01/23 17:28 Hydralazine Hcl 20 Mg/Ml 1 Ml Vial IVP Q4HR PRN Blood Pressure - High Hydromorphone HCl 1 mg 11/01/23 14:31 11/02/23 09:34 Hydromorphone 1 Mg/Ml 1 Ml Syringe IVP 1 mg Q3HR PRN Administration Pain Piperacillin Sod/Tazobactam 100 mls @ 25 mls/hr 11/01/23 16:00 11/02/23 08:35 Sod 3.375 gm/ Sodium Chloride IVPB 25 mls/hr Q8HR CARL Administration Protocol Sodium Chloride 1,000 mls @ 75 mls/hr 11/01/23 15:00 11/02/23 08:41 Saline 0.9% IV 75 mls/hr .[id number] CARL Administration Naloxone HCl 0.2 mg 11/01/23 14:00 Naloxone 0.4 Mg/Ml 1 Ml Vial IV Q2M PRN Opioid Reversal Nicotine 1 patch 11/01/23 16:45 11/02/23 08:36 Nicotine 21mg/24hr Patch TRANSDERM 1 patch DAILY CARL Administration Ondansetron HCl 4 mg 11/01/23 14:00 Ondansetron 4 Mg/2 Ml Vial IVP Q8HR PRN Nausea And Vomiting 11/01/23 11:43 11/01/23 11:43
--- NOTE | 2023-11-02 17:09 | P.PN ---
Subjective Progress Note Date: 11/02/23 Hospital course: Patient is a very pleasant 62-year-old male with a past medical history of CAD with previous HI, hypertension, hyperlipidemia, spontaneous pneumothorax, and nicotine dependence smoking 1 pack of cigarettes daily for over 40 years. Patient reports previously on medications for his blood pressure, possibly amlodipine but stopped taking years ago. He presented to the emergency department with a chief complaint of right upper quadrant pain. Patient reports pain began Wednesday night after eating [place] food for dinner. Patient reports when pain began it was accompanied by nausea and vomiting. He reports initial pain lasted for hours but seem to subside and somewhat improved on Wednesday, but states this pain soon returned with a vengeance so he came to the emergency department for evaluation. He reports pain remains to right upper quadrant and seems to radiate straight through into his back. He denies anything making it better or worse. Patient reports in addition to right upper quadrant pain, nausea, and vomiting he has also experiencing subjective fevers at home. He denies experiencing any dizziness/lightheadedness, diaphoresis, dysphagia, chest pain, palpitations, shortness of breath, cough or congestion, hematemesis, or experiencing any difficulties with or changes in his urinary or bowel function. Patient denies having any melena or hematochezia and denies any diarrhea or constipation. He underwent evaluation in the emergency department. Vital signs upon arrival show blood pressure 179/101, heart rate 105, respiratory rate 20, temp 98.6 F, and SpO2 of 98% on room air. Blood pressure increasing to 220/107 in the emergency department and patient was given a dose of IV hydralazine resulting in improvement of pressure decreasing it down to 172/82. EKG completed showing sinus mechanism at 93 bpm with T wave inversion in inferior leads III and aVF. Chest x-ray completed negative for acute cardiopulmonary process. Gallbladder ultrasound completed with reports of positive Marquis's sign and evidence of cholelithiasis with pericholecystic fluid and possible gallbladder wall thickening concerning for acute cholecystitis. Labs completed and reviewed. CBC showing leukocytosis with WBC count of 13.3, polycythemia with hemoglobin of 18.8 and thrombocytopenia with platelet count of 136. BMP unremarkable. Lactic acid normal findings at 1.1. Liver profile showing normal findings. Troponin negative at less than 0.012. Lipase normal findings at 34. Urinalysis negative for blood or infection. Per ED provider, general surgery was notified and requested patient be admitted under hospitalist team with general surgery and cardiology on consult. Patient accepted for admission under our services at this time. Physical exam: Vital signs reviewed and stable. General: Nontoxic, no distress and appears stated age. Derm: Skin warm and dry, normal coloration for ethnicity. Head: Atraumatic, normocephalic and symmetric. Eyes: EOMs intact, no lid lag, and anicteric sclera Mouth: no lip lesions, mucus membranes moist Cardiovascular: regular rate and rhythm with normal S1S2, no murmur, positive posterior tibial pulses bilaterally, and cap refill < 2 seconds. Lungs: Respirations even, regular, and unlabored on room air. Lungs CTA bilaterally, no rhonchi, no rales, no wheezing, and no accessory muscle usage. Abdominal: Soft with tenderness to right upper quadrant upon palpation Ext: ROM intact. No gross muscle atrophy, no edema, no contractures Neuro: Speech clear, face symmetrical and CN II-XII grossly intact with no noted focal neuro deficits Psych: Alert and oriented to person, place, time, and situation. Appropriate and pleasant affect. Assessment and Plan of Care: Intractable abdominal pain Acute cholecystitis Leukocytosis Polycythemia Thrombocytopenia -Continue gentle IV fluid hydration with 0.9% normal saline at 75 cc/h. -Symptomatic care and pain management with Zofran 4 mg IVP every 8 hours as needed for nausea or vomiting and Dilaudid 1 mg every 3 hours as needed for pain. -General surgery consulted, appreciate recommendations. -Continue with IV antibiotics with Zosyn 3.375 g every 8 hours. -Continued close monitoring with repeat CBC and CMP. Hypertensive urgency History of CAD with previous HI -Hypertensive urgency likely multifactorial secondary to untreated underlying hypertension and pain secondary to acute cholecystitis. -Cardiology was consulted. Made changes to antihypertensive medication regimen and clearing patient from cardiac perspective to proceed with cholecystectomy. -Echocardiogram completed showing preserved EF of 55 to 60% with no significant valvular or structural abnormalities reported. -Continue amlodipine 5 mg daily and cardiology started patient on isosorbide mononitrate 30 mg daily and Metroprolol succinate 50 mg daily. Nicotine dependence -Recommend smoking cessation. Order placed for nicotine patch 21 mg daily. Surgical clearance -METS score is > 4 as patient reports independently performing all ADLs and able to walk 1-2 blocks and/or up 1 flight of stairs without chest pain or shortness of breath. -NSQIP surgical risk calculator showing patient at an above average risk of 2.1% with average of 1.8% for serious complications, above average risk of cardiac complications at 0.1% with average being 0.0% and an above average risk of at 0.1% with average risk being 0.0%. -Patient is at an above average risk to undergo laparoscopic cholecystectomy, however METS score is greater than 4 and therefore further workup is unlikely to change preoperative management and from medical perspective patient may proceed to surgery without further need of testing pending cardiology clearance. Data and imaging reviewed: -Echocardiogram completed showing preserved EF of 55 to 60% with no significant valvular or structural abnormalities reported. -Morning labs reviewed. CBC showing continued leukocytosis with WBC count of 13.74 and polycythemia with hemoglobin of 17.1. BMP unremarkable. Magnesium normal findings at 2.3. Liver profile remains unremarkable. -Vital signs reviewed and stable with blood pressure 165/73, heart rate 77, respiratory rate 16, temp 98.0 F, and SpO2 of 94% on room air. CODE STATUS: Full code DVT prophylaxis: Lovenox Anticipated discharge date: Clinical course to determine Anticipated discharge place: Home Patient was seen independently by Nurse Practitioner. This document was prepared using [employer] dictation software. Please allow for errors in mast maker while rare they do occur. Massimo Marlow NP rendered care for this patient independently, reviewed the findings and plan as documented in the note above. I did not physically speak with or examine the patient on this date. Objective - Vital Signs Vital signs: Vital Signs Temp 98.0 F 11/02/23 08:00 Pulse 77 11/02/23 08:00 Resp 16 11/02/23 08:00 BP 165/73 11/02/23 08:00 Pulse Ox 94 L 11/02/23 08:00 FiO2 Intake & Output 11/01/23 11/02/23 11/02/23 18:59 06:59 18:59 Weight 95.254 kg - Labs CBC & Chem 7: 11/02/23 06:24 11/02/23 06:24 Labs: Abnormal Lab Results - Last 24 Hours (Table) 11/01/23 11/01/23 11/01/23 Range/Units 11:43 11:43 11:43 WBC 13.3 H (3.8-10.6) k/uL RBC 5.92 H (4.30-5.90) m/uL Hgb 18.8 H (13.0-17.5) gm/dL Hct 54.7 H (39.0-53.0) % Plt Count 136 L (150-450) k/uL Neutrophils # 10.1 H (1.3-7.7) k/uL Glucose 127 H (74-99) mg/dL Urine Protein 1+ H (Negative) Urine Mucus Moderate H (None) /hpf
[2023-11-02] MEDS: ATORVASTATIN 40 MG TAB PO SCH (19:42)
--- NOTE | 2023-11-03 09:51 | P.PN ---
Subjective Progress Note Date: 11/03/23 Reason for Consult (text): Surgical clearance History of present illness: This is a 62-year-old male previously seen by Dr. Ho in 2016 with past medical history of coronary artery disease in the OM branch which could not be opened, 100% on the ostial RCA, hypertension, dyslipidemia, tobacco use, history of AK. We have been asked to evaluate the patient for presurgical clearance. Patient presented to the hospital due to abdominal pain that woke him on Wednesday with nausea and vomiting, feverish. Patient was found to have cholecystitis, seen by general surgery and plan for surgical intervention. Regarding blood pressure, patient has been started on amlodipine and status post 1 dose of IV hydralazine. Patient states that he stopped taking all of his cardiac medications a few years ago. Patient is an active smoker. He is agreeable to follow-up with cardiology following this hospitalization. EKG sinus rhythm 93 bpm Chest x-ray: No acute process Echocardiogram reveals EF of 55-60. Gallbladder ultrasound revealed cholelithiasis with pericholecystic fluid and possible gallbladder wall thickening. Positive Marquis sign WBC 13.3, hemoglobin 18, platelet count 136. CMP within normal limits except for glucose of 127. Troponin negative x 1. Home cardiac medications: None Cardiac catheterization performed [address] Ho in the setting of an acute non-ST elevated myocardial infarction revealed LAD 20 to 30% diffuse pl aque. One of the OM branch is totally occluded. Right coronary artery is small and totally occluded in the proximal portion. 11/02 This morning, patient states that his abdominal pain is much better. He is scheduled for cholecystectomy today. Blood pressure 152/70, heart rate in the 70s, pulse ox 92% on room air. Echocardiogram report reason reviewed with the patient. Physical examination: Gen: This is a 62-year-old male in no acute distress VS: reviewed blood pressure 165/73, heart rate in the 70s and 80s, pulse ox 94% on room air HEENT: Head is atraumatic, normocephalic. Pupils equal, round. Sclerae is anicteric. NECK: Supple. No JVD. LUNGS: Clear to auscultation. No wheezes or rhonchi. No intercostal retractions. HEART: Regular rate and rhythm. No murmur. ABDOMEN: Soft No tenderness. EXTREMITIES: No pedal edema. No calf tenderness. NEUROLOGICAL: Patient is awake, alert and oriented x3. Assessment: Cholecystitis Coronary artery disease Hypertension Hyperlipidemia Tobacco use Noncompliance Plan: Patient is cleared for cholecystectomy. Continue patient on a atorvastatin 40 mg at bedtime, Imdur 30 mg daily, Toprol- XL 50 mg daily Continue amlodipine Start aspirin 81 mg following surgery Smoking cessation, continue nicotine patch Further recommendations to follow based upon clinical course At the time of discharge, patient to follow-up with Dr. Don Langley in the office in 2 weeks. Nurse practitioner note has been reviewed, I agree with documented findings and plan of care. Patient was seen and examined. Objective - Vital Signs Vital signs: Vital Signs Temp 98.1 F 11/03/23 02:00 Pulse 75 11/03/23 02:00 Resp 16 11/03/23 02:00 BP 109/63 11/03/23 02:00 Pulse Ox 94 L 11/03/23 02:00 FiO2 Intake & Output 11/02/23 11/03/23 11/03/23 18:59 06:59 18:59 Weight 95.254 kg Other: # Voids 2 1 # Bowel Movements 1 - Labs CBC & Chem 7: 11/02/23 06:24 11/02/23 06:24 Labs: Abnormal Lab Results - Last 24 Hours (Table) 11/02/23 11/02/23 Range/Units 06:24 06:24 WBC 13.74 H (4.50-10.00) X 10*3/uL Hgb 17.1 H (13.0-17.0) g/dL Hct 50.6 H (39.6-50.0) % Immature Gran # 0.06 H (0.00-0.04) X 10*3/uL Neutrophils # 9.05 H (1.80-7.70) X 10*3/uL Monocytes # 1.50 H (0.20-1.00) X 10*3/uL Anion Gap 13.30 H (4.00-12.00) mmol/L Glucose 111 H (70-110) mg/dL Albumin/Globulin Ratio 1.43 L (1.60-3.17) Ratio Microbiology - Last 24 Hours (Table) 11/01/23 14:50 Blood Culture - Preliminary Blood 11/01/23 14:50 Blood Culture - Preliminary Blood
[2023-11-03 11:19] LABS: Basophils # (A) 0.03 X 10*3/uL (0.00-0.10); Basophils % (A) 0.3 %; Eosinophils # (A) 0.06 X 10*3/uL (0.04-0.35); Eosinophils % (A) 0.6 %; HGB 15.5 g/dL (13.0-17.0); Lymphocytes # (A) 2.08 X 10*3/uL (0.90-5.00); Lymphocytes % (A) 19.2 %; MCH 31.4 pg (27.0-32.0); MCHC 33.7 g/dL (32.0-37.0); MCV 93.3 FL (80.0-97.0); Mean Platelet Volume 11.3 FL (9.5-12.2); Monocytes # (A) 0.89 X 10*3/uL (0.20-1.00); Monocytes % (A) 8.2 %; NRBC Per 100 WBC 0 X 10*3/uL (0.00-0.01); Neutrophils # (A) 7.74 X 10*3/uL (1.80-7.70); Neutrophils % (A) 71.4 %; Platelet Count 145 X 10*3/uL (140-440); RBC 4.93 X 10*6/uL (4.40-5.60); RDW 12.6 % (11.5-14.5); WBC 10.83 X 10*3/uL (4.50-10.00)
[2023-11-03] MEDS: DEXAMETHASONE SOD PHOSPHATE 4 MG/ML 1 ML VIAL IV ONE (11:25)
[2023-11-03] MEDS: ONDANSETRON 4 MG/2 ML VIAL IVP ONE ×2 (11:25→19:32)
[2023-11-03 11:38] LABS: BUN/Creat Ratio 27.12 Ratio (12.00-20.00); Blood Urea Nitrogen 21.7 mg/dL (9.0-27.0); Calcium 8.9 mg/dL (8.7-10.3); Chloride 104 mmol/L (96-109); Chol/HDL Ratio 4.32 Ratio; Glucose 112 mg/dL (70-110); LDL Cholesterol,Calculated 117.6 mg/dL (0.0-131.0); Potassium 4.2 mmol/L (3.5-5.5); Sodium 139 mmol/L (135-145); VLDL Calculation 19.98 mg/dL (5.00-40.00)
--- NOTE | 2023-11-03 16:09 | P.HPADDEND ---
H&P Addendum H&P Addendum Date: 11/03/23 Patient presents with severe right upper quadrant abdominal pain. Ultrasound consistent with symptomatic gallstones. Robotic cholecystectomy described for acute cholecystitis. Cardiac risk assessment obtained.
--- NOTE | 2023-11-03 16:26 | P.PN ---
Subjective Progress Note Date: 11/03/23 Hospital course: Patient is a very pleasant 62-year-old male with a past medical history of CAD with previous [place], hypertension, hyperlipidemia, spontaneous pneumothorax, and nicotine dependence smoking 1 pack of cigarettes daily for over 40 years. Patient reports previously on medications for his blood pressure, possibly amlodipine but stopped taking years ago. He presented to the emergency department with a chief complaint of right upper quadrant pain. Patient reports pain began Wednesday night after eating [place] food for dinner. Patient reports when pain began it was accompanied by nausea and vomiting. He reports initial pain lasted for hours but seem to subside and somewhat improved on Wednesday, but states this pain soon returned with a vengeance so he came to the emergency department for evaluation. He reports pain remains to right upper quadrant and seems to radiate straight through into his back. He denies anything making it better or worse. Patient reports in addition to right upper quadrant pain, nausea, and vomiting he has also experiencing subjective fevers at home. He denies experiencing any dizziness/lightheadedness, diaphoresis, dysphagia, chest pain, palpitations, shortness of breath, cough or congestion, hematemesis, or experiencing any difficulties with or changes in his urinary or bowel function. Patient denies having any melena or hematochezia and denies any diarrhea or constipation. He underwent evaluation in the emergency department. Vital signs upon arrival show blood pressure 179/101, heart rate 105, respiratory rate 20, temp 98.6 F, and SpO2 of 98% on room air. Blood pressure increasing to 220/107 in the emergency department and patient was given a dose of IV hydralazine resulting in improvement of pressure decreasing it down to 172/82. EKG completed showing sinus mechanism at 93 bpm with T wave inversion in inferior leads III and aVF. Chest x-ray completed negative for acute cardiopulmonary process. Gallbladder ultrasound completed with reports of positive Marquis's sign and evidence of cholelithiasis with pericholecystic fluid and possible gallbladder wall thickening concerning for acute cholecystitis. Labs completed and reviewed. CBC showing leukocytosis with WBC count of 13.3, polycythemia with hemoglobin of 18.8 and thrombocytopenia with platelet count of 136. BMP unremarkable. Lactic acid normal findings at 1.1. Liver profile showing normal findings. Troponin negative at less than 0.012. Lipase normal findings at 34. Urinalysis negative for blood or infection. Per ED provider, general surgery was notified and requested patient be admitted under hospitalist team with general surgery and cardiology on consult. Patient accepted for admission under our services at this time. Patient received medical clearance and cardiac clearance to undergo cholecystectomy. General surgery taking patient for cholecystectomy later today. Physical exam: Patient seen and fully evaluated at bedside this morning. Patient's family mem bers at bedside, patient awaiting to be taken down for laparoscopic cholecystectomy later today. He currently reports abdominal pain is controlled and denies having any other complaints or needs at this time. Vital signs reviewed and stable. General: Nontoxic, no distress and appears stated age. Derm: Skin warm and dry, normal coloration for ethnicity. Head: Atraumatic, normocephalic and symmetric. Eyes: EOMs intact, no lid lag, and anicteric sclera Mouth: no lip lesions, mucus membranes moist Cardiovascular: regular rate and rhythm with normal S1S2, no murmur, positive posterior tibial pulses bilaterally, and cap refill < 2 seconds. Lungs: Respirations even, regular, and unlabored on room air. Lungs CTA bilaterally, no rhonchi, no rales, no wheezing, and no accessory muscle usage. Abdominal: Soft with tenderness to right upper quadrant upon palpation Ext: ROM intact. No gross muscle atrophy, no edema, no contractures Neuro: Speech clear, face symmetrical and CN II-XII grossly intact with no noted focal neuro deficits Psych: Alert and oriented to person, place, time, and situation. Appropriate and pleasant affect. Assessment and Plan of Care: Intractable abdominal pain Acute cholecystitis Leukocytosis Polycythemia Thrombocytopenia -Continue gentle IV fluid hydration with 0.9% normal saline at 75 cc/h. -Symptomatic care and pain management with Zofran 4 mg IVP every 8 hours as need ed for nausea or vomiting and Dilaudid 1 mg every 3 hours as needed for pain. -General surgery consulted, appreciate recommendations. -Continue with IV antibiotics with Zosyn 3.375 g every 8 hours. -Continued close monitoring with repeat CBC and CMP. Hypertensive urgency History of CAD with previous [place] -Hypertensive urgency likely multifactorial secondary to untreated underlying hypertension and pain secondary to acute cholecystitis. -Cardiology was consulted. Made changes to antihypertensive medication regimen and clearing patient from cardiac perspective to proceed with cholecystectomy. -Echocardiogram completed showing preserved EF of 55 to 60% with no significant valvular or structural abnormalities reported. -Continue amlodipine 5 mg daily and cardiology started patient on isosorbide mononitrate 30 mg daily and Metroprolol succinate 50 mg daily. Nicotine dependence -Recommend smoking cessation. Order placed for nicotine patch 21 mg daily. Preoperative clearance -METS score is > 4 as patient reports independently performing all ADLs and able to walk 1-2 blocks and/or up 1 flight of stairs without chest pain or shortness of breath. -NSQIP surgical risk calculator showing patient at an above average risk of 2.1% with average of 1.8% for serious complications, above average risk of cardiac complications at 0.1% with average being 0.0% and an above average risk of at 0.1% with average risk being 0.0%. -Patient is at an above average risk to undergo laparoscopic cholecystectomy, however METS score is greater than 4 and therefore further workup is unlikely to change preoperative management and from medical perspective patient may proceed to surgery without further need of testing and cardiology has cleared patient from cardiac perspective as well. Data and imaging reviewed: -Echocardiogram completed showing preserved EF of 55 to 60% with no significant valvular or structural abnormalities reported. -Morning labs reviewed. CBC showing continued leukocytosis with WBC count of 10.83. BMP unremarkable. Glucose 112. Lipid profile unremarkable. -Vital signs reviewed and stable with blood pressure 152/70, heart rate 73, respiratory rate 16, temp 98.3 F, and SpO2 of 92% on room air. CODE STATUS: Full code DVT prophylaxis: Lovenox Anticipated discharge date: Clinical course to determine Anticipated discharge place: Home Patient was seen independently by Nurse Practitioner. This document was prepared using [employer] dictation software. Please allow for errors in [employer] while rare they do occur. Objective - Vital Signs Vital signs: Vital Signs Temp 98.3 F 11/03/23 07:00 Pulse 73 11/03/23 07:00 Resp 16 11/03/23 07:00 BP 152/70 11/03/23 07:00 Pulse Ox 92 L 11/03/23 07:00 FiO2 Intake & Output 11/02/23 11/03/23 11/03/23 18:59 06:59 18:59 Weight 95.254 kg Other: # Voids 2 1 # Bowel Movements 1 - Labs CBC & Chem 7: 11/03/23 07:23 11/03/23 07:23 Labs: Abnormal Lab Results - Last 24 Hours (Table) 11/02/23 11/02/23 Range/Units 06:24 06:24 WBC 13.74 H (4.50-10.00) X 10*3/uL Hgb 17.1 H (13.0-17.0) g/dL Hct 50.6 H (39.6-50.0) % Immature Gran # 0.06 H (0.00-0.04) X 10*3/uL Neutrophils # 9.05 H (1.80-7.70) X 10*3/uL Monocytes # 1.50 H (0.20-1.00) X 10*3/uL Anion Gap 13.30 H (4.00-12.00) mmol/L Glucose 111 H (70-110) mg/dL Albumin/Globulin Ratio 1.43 L (1.60-3.17) Ratio Microbiology - Last 24 Hours (Table) 11/01/23 14:50 Blood Culture - Preliminary Blood 11/01/23 14:50 Blood Culture - Preliminary Blood
[2023-11-03] MEDS: IV FLUID CONTINUATION 1,000 ML IV ONE (19:25)
[2023-11-03] MEDS: DEXAMETHASONE SOD PHOSPHATE 4 MG/ML 1 ML VIAL IVP ONE (19:32)
[2023-11-03] MEDS: LIDOCAINE 1%-EPI 1:100,000 20 ML VIAL SQ ONE ×2 (20:23→20:56)
[2023-11-03] MEDS ORDERED: PHENYLEPHRINE-0.9% NACL SYG 1,000 MCG/10 ML SYRINGE ONE (20:27)
[2023-11-03] MEDS ORDERED: HYDROmorphone (PF) 1 MG/ML ONE (20:27)
[2023-11-03] MEDS ORDERED: GLYCOPYRROLATE 0.2 MG/ML 2 ML VIAL ONE (20:27)
[2023-11-03] MEDS ORDERED: SUCCINYLCHOLINE CHLORIDE 200 MG/10 ML VIAL IV ONE (20:27)
[2023-11-03] MEDS ORDERED: ROCURONIUM 10 MG/ML (5 ML VIAL) IV ONE (20:27)
[2023-11-03] MEDS ORDERED: LABETALOL 5 MG/ML VIAL MDV ONE (20:27)
[2023-11-03] MEDS ORDERED: NEOSTIGMINE 1 MG/ML 10 ML VIAL ONE (20:27)
[2023-11-03] MEDS ORDERED: PROPOFOL 10 MG/ML 20 ML VIAL IV ONE (20:27)
[2023-11-03] MEDS ORDERED: LIDOCAINE 1% INJ 10MG/ML (20 ML MDV) ONE (20:27)
[2023-11-03] MEDS ORDERED: fentaNYL (PF) 50 MCG/ML 2 ML AMP ONE (20:27)
[2023-11-03] MEDS ORDERED: MIDAZOLAM 2 MG/2 ML VIAL ONE (20:27)
[2023-11-03] MEDS: LACTATED RINGERS 1,000 ML IV ONE ×2 (21:06→23:09)
[2023-11-03] MEDS: hydrALAZINE HCL 20 MG/ML 1 ML VIAL IVP ONE ×2 (23:29→23:56)
[2023-11-04] MEDS: hydrALAZINE HCL 20 MG/ML 1 ML VIAL IVP ONE (00:04)
[2023-11-04] MEDS: LACTATED RINGERS 1,000 ML IV SCH ×2 (00:37→00:38)
[2023-11-04] MEDS: INDOCYANINE GREEN 25 MG VIAL IV STA (00:38)
[2023-11-04] MEDS ORDERED: NALOXONE 0.4 MG/ML 1 ML VIAL IV PRN (00:42)
[2023-11-04] MEDS ORDERED: ACETAMINOPHEN TAB 325 MG TAB PO PRN (00:42)
[2023-11-04] MEDS: KETOROLAC 15 MG/ML 1 ML VIAL IVP SCH (01:15)
[2023-11-04] MEDS ORDERED: HYDROmorphone 0.5 MG/0.5 ML SYRINGE IVP PRN (07:00)
--- NOTE | 2023-11-04 10:28 | P.PN ---
Subjective Progress Note Date: 11/04/23 Hospital course: Patient is a very pleasant 62-year-old male with a past medical history of CAD with previous [place], hypertension, hyperlipidemia, spontaneous pneumothorax, and nicotine dependence smoking 1 pack of cigarettes daily for over 40 years. Patient reports previously on medications for his blood pressure, possibly amlodipine but stopped taking years ago. He presented to the emergency department with a chief complaint of right upper quadrant pain. Patient reports pain began Wednesday night after eating [place] food for dinner. Patient reports when pain began it was accompanied by nausea and vomiting. He reports initial pain lasted for hours but seem to subside and somewhat improved on Wednesday, but states this pain soon returned with a vengeance so he came to the emergency department for evaluation. He reports pain remains to right upper quadrant and seems to radiate straight through into his back. He denies anything making it better or worse. Patient reports in addition to right upper quadrant pain, nausea, and vomiting he has also experiencing subjective fevers at home. He denies experiencing any dizziness/lightheadedness, diaphoresis, dysphagia, chest pain, palpitations, shortness of breath, cough or congestion, hematemesis, or experiencing any difficulties with or changes in his urinary or bowel function. Patient denies having any melena or hematochezia and denies any diarrhea or constipation. He underwent evaluation in the emergency department. Vital signs upon arrival show blood pressure 179/101, heart rate 105, respiratory rate 20, temp 98.6 F, and SpO2 of 98% on room air. Blood pressure increasing to 220/107 in the emergency department and patient was given a dose of IV hydralazine resulting in improvement of pressure decreasing it down to 172/82. EKG completed showing sinus mechanism at 93 bpm with T wave inversion in inferior leads III and aVF. Chest x-ray completed negative for acute cardiopulmonary process. Gallbladder ultrasound completed with reports of positive Marquis's sign and evidence of cholelithiasis with pericholecystic fluid and possible gallbladder wall thickening concerning for acute cholecystitis. Labs completed and reviewed. CBC showing leukocytosis with WBC count of 13.3, polycythemia with hemoglobin of 18.8 and thrombocytopenia with platelet count of 136. BMP unremarkable. Lactic acid normal findings at 1.1. Liver profile showing normal findings. Troponin negative at less than 0.012. Lipase normal findings at 34. Urinalysis negative for blood or infection. Per ED provider, general surgery was notified and requested patient be admitted under hospitalist team with general surgery and cardiology on consult. Patient accepted for admission under our services at this time. Patient received medical clearance and cardiac clearance to undergo cholecystectomy. General surgery took patient for cholecystectomy on 11/02 overnight. -Echocardiogram completed showing preserved EF of 55 to 60% with no significant valvular or structural abnormalities reported. Subjective: Patient has no complaints at this time. Patient says that he has been passing flatus. Patient has urinated following his procedure. He does have an appetite. He denies pain. He denies fevers, chills. Physical exam: Gen: In NAD, non-toxic HEENT: normocephalic, atraumatic, hearing acuity is intant, mucous membranes moist CVS: perfusing all extremities well, no pitting edema, Respiratory: symmetric chest expansion, no accessory muscle use, GI: soft, NTTP, ND, : no suprapubic tenderness, no CVA tenderness MSK/Derm: no rashes, cyanosis Neuro: CN II-XII intact, no motor weakness, Psych: cooperative, euthymic mood, judgment and insight is intact Assessment and Plan of Care: Acute cholecystitis Leukocytosis Polycythemia Thrombocytopenia -Continue gentle IV fluid hydration with 0.9% normal saline at 75 cc/h. -Symptomatic care and pain management with Zofran 4 mg IVP every 8 hours as needed for nausea or vomiting and Dilaudid 1 mg every 3 hours as needed for pain. -General surgery consulted, appreciate recommendations. -Continue with IV antibiotics with Zosyn 3.375 g every 8 hours. -Continued close monitoring with repeat CBC and CMP. Hypertensive urgency History of CAD with previous [place] -Hypertensive urgency likely multifactorial secondary to untreated underlying hypertension and pain secondary to acute cholecystitis. -Cardiology was consulted. Made changes to antihypertensive medication regimen and clearing patient from cardiac perspective to proceed with cholecystectomy. -Echocardiogram completed showing preserved EF of 55 to 60% with no significant valvular or structural abnormalities reported. -Continue amlodipine 5 mg daily and cardiology started patient on isosorbide mononitrate 30 mg daily and Metroprolol succinate 50 mg daily. Nicotine dependence -Recommend smoking cessation. Order placed for nicotine patch 21 mg daily. Preoperative clearance -METS score is > 4 as patient reports independently performing all ADLs and able to walk 1-2 blocks and/or up 1 flight of stairs without chest pain or shortness of breath. -NSQIP surgical risk calculator showing patient at an above average risk of 2.1% with average of 1.8% for serious complications, above average risk of cardiac complications at 0.1% with average being 0.0% and an above average risk of at 0.1% with average risk being 0.0%. -Patient is at an above average risk to undergo laparoscopic cholecystectomy, however METS score is greater than 4 and therefore further workup is unlikely to change preoperative management and from medical perspective patient may proceed to surgery without further need of testing and cardiology has cleared patient from cardiac perspective as well. CODE STATUS: Full code DVT prophylaxis: Lovenox Anticipated discharge date: Clinical course to determine Anticipated discharge place: Home This document was prepared using [employer] dictation software. Please allow for errors in corn miller while rare they do occur. Objective - Vital Signs Vital signs: Vital Signs Temp 98.4 F 11/04/23 07:00 Pulse 81 11/04/23 07:00 Resp 16 11/04/23 07:00 BP 165/84 11/04/23 07:00 Pulse Ox 96 11/04/23 07:00 FiO2 Intake & Output 11/03/23 11/04/23 11/04/23 18:59 06:59 18:59 Intake Total 1900 118 Output Total 100 Balance 1800 118 Intake: IV 1900 Oral 118 Output: Estimated Blood Loss 100 Other: Voiding Method Toilet # Voids 2 1 - Labs CBC & Chem 7: 11/03/23 07:23 11/03/23 07:23 Labs: Abnormal Lab Results - Last 24 Hours (Table) 11/03/23 11/03/23 Range/Units 07:23 07:23 WBC 10.83 H (4.50-10.00) X 10*3/uL Neutrophils # 7.74 H (1.80-7.70) X 10*3/uL BUN/Creatinine Ratio 27.12 H (12.00-20.00) Ratio Glucose 112 H (70-110) mg/dL Microbiology - Last 24 Hours (Table) 11/01/23 14:50 Blood Culture - Preliminary Blood 11/01/23 14:50 Blood Culture - Preliminary Blood
--- NOTE | 2023-11-04 11:11 | P.PN ---
Subjective Progress Note Date: 11/04/23 Reason for Consult (text): Surgical clearance History of present illness: This is a 62-year-old male previously seen by Dr. Ho in 2016 with past medical history of coronary artery disease in the OM branch which could not be opened, 100% on the ostial RCA, hypertension, dyslipidemia, tobacco use, history of LA. We have been asked to evaluate the patient for presurgical clearance. Patient presented to the hospital due to abdominal pain that woke him on Wednesday with nausea and vomiting, feverish. Patient was found to have cholecystitis, seen by general surgery and plan for surgical intervention. Regarding blood pressure, patient has been started on amlodipine and status post 1 dose of IV hydralazine. Patient states that he stopped taking all of his cardiac medications a few years ago. Patient is an active smoker. He is agreeable to follow-up with cardiology following this hospitalization. EKG sinus rhythm 93 bpm Chest x-ray: No acute process Echocardiogram reveals EF of 55-60. Gallbladder ultrasound revealed cholelithiasis with pericholecystic fluid and possible gallbladder wall thickening. Positive Marquis sign WBC 13.3, hemoglobin 18, platelet count 136. CMP within normal limits except for glucose of 127. Troponin negative x 1. Home cardiac medications: None Cardiac catheterization performed [address] Ho in the setting of an acute non-ST elevated myocardial infarction revealed LAD 20 to 30% diffuse pl aque. One of the OM branch is totally occluded. Right coronary artery is small and totally occluded in the proximal portion. 11/02 This morning, patient states that his abdominal pain is much better. He is scheduled for cholecystectomy today. Blood pressure 152/70, heart rate in the 70s, pulse ox 92% on room air. Echocardiogram report reason reviewed with the patient. 11/03 Yesterday, patient underwent cholecystectomy. He denies having any chest pain today. Blood pressure 165/84 otherwise blood pressures have been well- controlled. Heart rate is in the 80s. No medication changes made today. Physical examination: Gen: This is a 62-year-old male in no acute distress VS: reviewed HEENT: Head is atraumatic, normocephalic. Pupils equal, round. Sclerae is anicteric. NECK: Supple. No JVD. LUNGS: Clear to auscultation. No wheezes or rhonchi. No intercostal retractions. HEART: Regular rate and rhythm. No murmur. ABDOMEN: Soft No tenderness. EXTREMITIES: No pedal edema. No calf tenderness. NEUROLOGICAL: Patient is awake, alert and oriented x3. Assessment: Cholecystitis Coronary artery disease Hypertension Hyperlipidemia Tobacco use Noncompliance Plan: Continue patient on a atorvastatin 40 mg at bedtime, Imdur 30 mg daily, Toprol- XL 50 mg daily Continue amlodipine Start aspirin 81 mg following surgery Smoking cessation, continue nicotine patch At the time of discharge, patient to follow-up with Dr. Don Langley in the office in 2 weeks. Nurse practitioner note has been reviewed, I agree with documented findings and plan of care. Patient was seen and examined. Objective - Vital Signs Vital signs: Vital Signs Temp 98.4 F 11/04/23 07:00 Pulse 81 11/04/23 07:00 Resp 16 11/04/23 07:00 BP 165/84 11/04/23 07:00 Pulse Ox 96 11/04/23 07:00 FiO2 Intake & Output 11/03/23 11/04/23 11/04/23 18:59 06:59 18:59 Intake Total 1900 118 Output Total 100 Balance 1800 118 Intake: IV 1900 Oral 118 Output: Estimated Blood Loss 100 Other: Voiding Method Toilet # Voids 2 1 - Labs CBC & Chem 7: 11/03/23 07:23 11/03/23 07:23 Labs: Abnormal Lab Results - Last 24 Hours (Table) 11/03/23 11/03/23 Range/Units 07:23 07:23 WBC 10.83 H (4.50-10.00) X 10*3/uL Neutrophils # 7.74 H (1.80-7.70) X 10*3/uL BUN/Creatinine Ratio 27.12 H (12.00-20.00) Ratio Glucose 112 H (70-110) mg/dL Microbiology - Last 24 Hours (Table) 11/01/23 14:50 Blood Culture - Preliminary Blood 11/01/23 14:50 Blood Culture - Preliminary Blood
[2023-11-04 12:36] LABS: Basophils % (A) 0 %; Eosinophils % (A) 0 %; HCT 42.5 % (39.0-53.0); Lymphocytes # (A) 2.6 k/uL (1.0-4.8); Lymphocytes % (A) 18 %; MCH 30.9 pg (25.0-35.0); MCHC 32.5 g/dL (31.0-37.0); MCV 95.2 fL (80.0-100.0); Mean Platelet Volume 8.4; Monocytes # (A) 1.1 k/uL (0-1.0); Monocytes % (A) 8 %; Neutrophils # (A) 10.7 k/uL (1.3-7.7); Neutrophils % (A) 72 %; Platelet Count 156 k/uL (150-450); RBC 4.46 m/uL (4.30-5.90); RDW 12.8 % (11.5-15.5); WBC 14.8 k/uL (3.8-10.6)
[2023-11-04 12:38] LABS: ALT 45 U/L (4-49); AST 40 U/L (17-59); African American GFR (CKD) >90 (>60 ml/min/1.73 sqM); Albumin 3.2 g/dL (3.5-5.0); Albumin/Globulin Ratio 1.2; Alkaline Phosphatase 70 U/L (38-126); Anion Gap 7 mmol/L; Blood Urea Nitrogen 28 mg/dL (9-20); Calcium 8.7 mg/dL (8.4-10.2); Carbon Dioxide 25 mmol/L (22-30); Chloride 107 mmol/L (98-107); Globulin 2.6 g/dL; Glucose 102 mg/dL (74-99); Non-African American GFR(CKD) >90 (>60 ml/min/1.73 sqM); Potassium 3.9 mmol/L (3.5-5.1); Sodium 139 mmol/L (137-145); Total Bilirubin 0.9 mg/dL (0.2-1.3); Total Protein 5.8 g/dL (6.3-8.2)
[2023-11-04 12:54] LABS: HGB 13.8 gm/dL (13.0-17.5)
--- NOTE | 2023-11-04 13:40 | P.DS ---
Providers Date of admission: 11/01/23 15:15 Expected date of discharge: 11/04/23 Attending physician: Alina Newman MD Consults: 11/01/23 14:00 Consult Physician Urgent Consulting Provider: Macrina Copeland Consult Reason/Comments: acute cholecystitis Do you want consulting provider notified?: Yes Consult Physician Urgent Consulting Provider: Mayur Rose Consult Reason/Comments: surgical clearance Do you want consulting provider notified?: Yes Primary care physician: Scott Faria Hospital Course: Assessment: Acute cholecystitis Leukocytosis Polycythemia Thrombocytopenia Hypertensive urgency History of CAD with previous [place] Nicotine dependence Preoperative clearance Hospital course: Patient is a very pleasant 62-year-old male with a past medical history of CAD with previous [place], hypertension, hyperlipidemia, spontaneous pneumothorax, and nicotine dependence smoking 1 pack of cigarettes daily for over 40 years. Patient reports previously on medications for his blood pressure, possibly amlodipine but stopped taking years ago. He presented to the [facility] with a chief complaint of right upper quadrant pain. Patient reports pain began Wednesday night after eating [place] food for dinner. Patient reports when pain began it was accompanied by nausea and vomiting. He reports initial pain lasted for hours but seem to subside and somewhat improved on Wednesday, but states this pain soon returned with a vengeance so he came to the emergency department for evaluation. He reports pain remains to right upper quadrant and seems to radiate straight through into his back. He denies anything making it better or worse. Patient reports in addition to right upper quadrant pain, nausea, and vomiting he has also experiencing subjective fevers at home. He denies experiencing any dizziness/lightheadedness, diaphoresis, dysphagia, chest pain, palpitations, shortness of breath, cough or congestion, hematemesis, or experiencing any difficulties with or changes in his urinary or bowel function. Patient denies having any melena or hematochezia and denies any diarrhea or constipation. He underwent evaluation in the emergency department. Vital signs upon arrival show blood pressure 179/101, heart rate 105, respiratory rate 20, temp 98.6 F, and SpO2 of 98% on room air. Blood pressure increasing to 220/107 in the emergency department and patient was given a dose of IV hydralazine resulting in improvement of pressure decreasing it down to 172/82. EKG completed showing sinus mechanism at 93 bpm with T wave inversion in inferior leads III and aVF. Chest x-ray completed negative for acute cardiopulmonary process. Gallbladder ultrasound completed with reports of positive Marquis's sign and evidence of cholelithiasis with pericholecystic fluid and possible gallbladder wall thickening concerning for acute cholecystitis. Labs completed and reviewed. CBC showing leukocytosis with WBC count of 13.3, polycythemia with hemoglobin of 18.8 and thrombocytopenia with platelet count of 136. BMP unremarkable. Lactic acid normal findings at 1.1. Liver profile showing normal findings. Troponin negative at less than 0.012. Lipase normal findings at 34. Urinalysis negative for blood or infection. Per ED provider, general surgery was notified and requested patient be admitted under hospitalist team with general surgery and cardiology on consult. Patient accepted for admission under our services at this time. Patient received medical clearance and cardiac clearance to undergo cholecystectomy. General surgery took patient for cholecystectomy on 11/02 overnight. -Echocardiogram completed showing preserved EF of 55 to 60% with no significant valvular or structural abnormalities reported. Pt cleared for discharge by general surgery. He will f/u with PCP and surgeyr and complete course of augmentin I spent 32 minutes coordinating discharge on 11/03 Physical exam: Gen: In NAD, non-toxic HEENT: normocephalic, atraumatic, hearing acuity is intant, mucous membranes moist CVS: perfusing all extremities well, no pitting edema, Respiratory: symmetric chest expansion, no accessory muscle use, GI: soft, NTTP, ND, : no suprapubic tenderness, no CVA tenderness MSK/Derm: no rashes, cyanosis Neuro: CN II-XII intact, no motor weakness, Psych: cooperative, euthymic mood, judgment and insight is intact Patient Condition at Discharge: Good Plan - Discharge Summary Discharge Rx Participant: No New Discharge Prescriptions: New Ibuprofen [Motrin] 600 mg PO Q8HR PRN #30 tab PRN Reason: Pain Amoxic-Pot Clav 875-125Mg [Augmentin 875-125] 1 tab PO Q12HR 10 Days #20 tab Acetaminophen Tab [Tylenol] 1,000 mg PO Q6HR PRN #30 tablet PRN Reason: Pain Discharge Medication List Acetaminophen Tab [Tylenol] 1,000 mg PO Q6HR PRN #30 tablet 11/04/23 [Rx] Amoxic-Pot Clav 875-125Mg [Augmentin 875-125] 1 tab PO Q12HR 10 Days #20 tab 11/04/23 [Rx] Ibuprofen [Motrin] 600 mg PO Q8HR PRN #30 tab 11/04/23 [Rx] Follow up Appointment(s)/Referral(s): Scott Faria MD [Primary Care Provider] - 1-2 days Macrina Copeland MD [STAFF PHYSICIAN] - 11/09/23 Jose Luis Langley MD [STAFF PHYSICIAN] - 2 Weeks Activity/Diet/Wound Care/Special Instructions: Telehealth office visit on November [address] Copeland No lifting over 4 pounds in 4 weeks. May shower. No bath tub soaks for two weeks Use Tylenol and ibuprofen scheduled for the next 24-48 hours for best pain relief. Use ice along incisions for the today to prevent swelling. Discharge Disposition: HOME SELF-CARE
--- NOTE | 2023-11-04 13:42 | P.PN ---
Subjective Progress Note Date: 11/04/23 CHIEF COMPLAINT: Abdominal pain HISTORY OF PRESENT ILLNESS: Patient status post Robotic cholecystectomy. Patient denies any abdominal pain. Denies any nausea or vomiting. Tolerating low fiber diet. Afebrile. He has been up and ambulating. Repeat LFTs are normal. White count slightly elevated at 14 PHYSICAL EXAM: VITAL SIGNS: Reviewed GENERAL: Well-developed in no acute distress. HEENT: No sclera icterus. Extraocular movements grossly intact. Moist buccal mucosa. Head is atraumatic, normocephalic. Hears conversational speech. No nasal drainage. NECK: Supple without lymphadenopathy. CHEST: Non-labored respirations and equal bilateral excursions. CARDIOVASCULAR: Palpable 2+ radial pulses. ABDOMEN: Soft. Nondistended. Nontender. Incision sites clean dry and intact MUSCULOSKELETAL: No clubbing or cyanosis. NEUROLOGIC: No focal or lateralizing signs. Cranial nerves II through XII grossly intact. PSYCH: Appropriate affect. Alert and oriented to person, place and time. SKIN: Well perfused. Good skin turgor. ASSESSMENT: 1. Acute cholecystitis 2. Severe hypertension improved 3. Medical noncompliance 4. History of coronary artery disease 5. Nicotine dependence PLAN: -Patient can be discharged from surgical standpoint -Recommend Augmentin for 10 more days at discharge Physician Cut Out Machine Operator note has been reviewed by physician. Signing provider agrees with the documented findings, assessment, and plan of care. Objective - Vital Signs Vital signs: Vital Signs Temp 98.4 F 11/04/23 07:00 Pulse 81 11/04/23 07:00 Resp 16 11/04/23 07:00 BP 165/84 11/04/23 07:00 Pulse Ox 96 11/04/23 07:00 FiO2 Intake & Output 11/03/23 11/04/23 11/04/23 18:59 06:59 18:59 Intake Total 1900 118 Output Total 100 Balance 1800 118 Intake: IV 1900 Oral 118 Output: Estimated Blood Loss 100 Other: Voiding Method Toilet Toilet # Voids 2 1 - Labs CBC & Chem 7: 11/04/23 11:39 11/04/23 11:39 Labs: Abnormal Lab Results - Last 24 Hours (Table) 11/04/23 11/04/23 Range/Units 11:39 11:39 WBC 14.8 H (3.8-10.6) k/uL Neutrophils # 10.7 H (1.3-7.7) k/uL Monocytes # 1.1 H (0-1.0) k/uL BUN 28 H (9-20) mg/dL Glucose 102 H (74-99) mg/dL Total Protein 5.8 L (6.3-8.2) g/dL Albumin 3.2 L (3.5-5.0) g/dL Microbiology - Last 24 Hours (Table) 11/01/23 14:50 Blood Culture - Preliminary Blood 11/01/23 14:50 Blood Culture - Preliminary Blood
[2023-11-04] MEDS: MAGNESIUM HYDROXIDE 2,400 MG/30 ML CUP PO SCH (14:00)
[2023-11-04] MEDS: LACTULOSE 20 GM/30 ML CUP PO ONE (14:00)
[2023-11-04 15:13] VITALS: BP 117/60; PULSE 72; RESP 17; TEMP 97.8
--- NOTE | 2023-11-04 19:35 | P.OP ---
Date of Procedure: 11/03/23 Description of Procedure: SURGEON: COLBY CHAN MD PREOPERATIVE DIAGNOSES: 1. Acute cholecystitis 2. Symptomatic gallstones 3. Coronary artery disease 4. Hypertensive heart disease 5. History of myocardial infarction 6. Tobacco abuse disorder 7. History of heart catheterization POSTOPERATIVE DIAGNOSES: 1. Acute on chronic hydropic gangrenous cholecystitis with cystic duct obstruction due to gallstones 2. Symptomatic gallstones 3. Coronary artery disease 4. Hypertensive heart disease 5. History of myocardial infarction 6. Tobacco abuse disorder 7. History of heart catheterization 8. Ileus OPERATION: 1. Robotic-assisted da Aleja Xi laparoscopic lysis of adhesions over 1.5 hours 2. Robotic-assisted da Aleja Xi laparoscopic cholecystectomy, multiport with FIREFLY ESTIMATED BLOOD LOSS: 100 mL. SPECIMENS REMOVED: Gallbladder. COMPLICATIONS: None. OPERATIVE FINDINGS: 1. Acute on chronic hydropic gangrenous cholecystitis 2. Indocyanine green confirms acute cholecystitis with lack of contrast in gallbladder 3. Infundibulum and trapped by surrounding mesenteric fat requiring staple technique along the infundibulum to prevent injury to common bile duct 4. Moderate impaction along the infundibulum for risk of choledocholithiasis which may need ERCP postcholecystectomy 5. Moderate distention of entire colon adding complexity to the case including limited visual ability 6. Purulent bile clear consistent with acute purulent hydropic gangrenous cholecystitis INDICATIONS: The patient is a 62 year-old male who presents with acute cholecystitis. Additional history is obtained by his family where the patient had been ill anywhere between 1 to 4 weeks with similar findings. Cardiac risk assessment was performed prior to surgery. Surgical intervention with cholecystectomy was described. Robotic assisted laparoscopic approach was described. Benefits and risks of the procedure including but not limited to bleeding, infection, injury to the biliary tree was reviewed. Informed consent was obtained. DESCRIPTION OF PROCEDURE: Patient was brought to the operating room, placed in supine position. After general induction, the abdomen had been prepped and draped in standard sterile fashion. The robotic da Aleja XI system was primed. After a timeout protocol was performed, the patient had been prepped and draped in standard sterile fashion. The patient was injected with indocyanine green. A 5 mm 0 degrees laparoscopic trocar entry was performed along the left upper quadrant. The abdomen insufflated to 15 mmHg pressure which was tolerated well. Diagnostic laparoscopy demonstrated no injury to bowel viscera or mesentery. The liver surface was unremarkable. A moderately scarred gallbladder was identified with complete encasement of the infundibulum including over 80% of the gallbladder. Next, two 8 mm robotic ports were placed along the right upper abdomen. The camera 8-mm port was maintained along the epigastrium. Another 8 mm port was placed along the left upper abdominal wall after exchanging the 5 mm port. Please note that the ports were placed at least 10 to 15 cm away from the target anatomy of the gallbladder. The robot was docked along the left lateral abdomen. The patient was repositioned in reverse Trendelenburg position at 25 with the right side up 7. Using a grasper for arm 3, a grasper for arm 4, including hook cautery for arm 1, the robotic system was docked and primed as described. Instruments were interchanged by the cafe assistant including hook cautery, Bovie cautery and clip appliers. Additional instruments including vessel sealer, robotic suction general foreman, robotic stapler were made available. I had sat at the console. The gallbladder was encased in surrounding tissue including the proximal transverse colon, omentum adding complexity to the case and requiring extensive lysis of adhesions using blunt and sharp dissection using vessel sealer including hook artery for over 1.5 hours. The gallbladder was reflected towards the dome of the liver. The gallbladder was moderately distended adding complexity to the case. Edema was found along the cystic triangle including infundibulum. Initial dissection was performed on the gallbladder infundibulum using indocyanine green to illuminate the cystic duct and common bile duct. Due to moderate distention of the infundibulum, dome down technique was performed removing the gallbladder from the hepatic fossa starting from the fundus towards the infundibulum. Using a sponge, the liver was reflected towards the diaphragm and starting at the gallbladder fundus, hook cautery was used between the liver and the gallbladder. As the gallbladder was dissected from the hepatic fossa, hemostasis was checked using vessel sealer along the posterior gallbladder. Next, indocyanine green was used to confirm the common bile duct as well as cystic duct. The entire gallbladder was without contrast consistent with acute cholecystitis. The infundibulum was retracted laterally away from the common bile duct. The left upper quadrant trocar was exchanged for a 12 mm robotic trocar. FIREFLY was used to identify the common bile duct. Robotic 45 mm green staple loads were fired across the infundibulum as the cystic duct and cystic structures were moderately edematous. Additionally, gallstone was impacted along the neck of the gallbladder. Indocyanine green was used to confirm no bile leak from the staple line. Spon ges were removed from the abdomen. The robot was undocked. I re-scrubbed into the case. A 10 mm Endo Catch bag was used to remove the gallbladder in total via the left upper quadrant incision after widening the incision. The specimen was removed from the abdominal cavity. Camilo Juarez and 0 Vicryl was used to close the fascial defect of the left upper quadrant. All pneumoperitoneum instruments were evacuated from the abdominal cavity. The incisions were cleansed using dilute hydrogen peroxide. The incisions were reapproximated using 4-0 Monocryl in an interrupted subcuticular fashion. Please note along the trocar sites, local anesthetic was placed as a field block prior to insertion of all instruments. Liquid glue was applied to the skin. Optifoam was placed for the left upper quadrant. At the end of the procedure needle, sponge, and instrument count had been verified correct by the rn medical surgical. The patient was transferred to postanesthesia care unit in stable condition. Intraoperative films were shared with the patient's family who were pleased with the level of care.
== END 2023-11-04 17:15 | disposition home or self-care (01) | DRG 418 ==
LOC: EC 10:42 → 6NMEDSUR 15:14 → OBSVTOIN 15:15 → 6NMEDSUR 20:20
PROVIDERS: ADMIT Family Medicine; ATTEND Family Medicine
PROC: 0DNW4ZZ Release Peritoneum, Percutaneous Endoscopic Approach (ICD-10-PCS; 2023-11-03)
PROC: 8E0W4CZ Robotic Assisted Procedure of Trunk Region, Percutaneous Endoscopic Approach (ICD-10-PCS; 2023-11-03)
PROC: 0FT44ZZ Resection of Gallbladder, Percutaneous Endoscopic Approach (ICD-10-PCS; principal; 2023-11-03 08:30)
DX: K80.13 Calculus of gallbladder with acute and chronic cholecystitis with obstruction (principal); K50.90 Crohn's disease, unspecified, without complications; K82.1 Hydrops of gallbladder; K82.8 Other specified diseases of gallbladder; K82.A1 Gangrene of gallbladder in cholecystitis; D69.6 Thrombocytopenia, unspecified; D75.1 Secondary polycythemia; E78.5 Hyperlipidemia, unspecified; I16.0 Hypertensive urgency; F17.210 Nicotine dependence, cigarettes, uncomplicated; Z71.6 Tobacco abuse counseling; I11.9 Hypertensive heart disease without heart failure; I25.2 Old myocardial infarction; I25.82 Chronic total occlusion of coronary artery; I25.10 Atherosclerotic heart disease of native coronary artery without angina pectoris; K66.0 Peritoneal adhesions (postprocedural) (postinfection); Z91.148 Patient's other noncompliance with medication regimen for other reason; Z91.199 Patient's noncompliance with other medical treatment and regimen due to unspecified reason; Z82.49 Family history of ischemic heart disease and other diseases of the circulatory system
CPT/HCPCS: 36415; 71046; 76705; 80048; 80053; 80061; 81001; 83605; 83690; 83735; 84484; 85025; 87040; 87070; 87075; 87205; 93005; 93306; 96361; 96365; 96366; 96375; 96376; 99285